=== PATIENT | male | born 1990 | race Caucasian/White ===

== ENCOUNTER 2016-10-06 20:57 | Emergency (ER) | payer MEDICAID ==
[2016-10-06 22:05] LABS: ANION GAP 11 mEq/L (8-16); CALCIUM 9.5 mg/dL (8.5-10.4); CARBON DIOXIDE 23 mEq/l (22-31); CHLORIDE 109 mEq/L (97-110); CREATININE 0.8 mg/dL (0.7-1.3); ETHANOL SERUM < 10 mg/dL (0-10); GLOMERULAR FILTRATION RATE > 60; GLUCOSE 81 mg/dL (70-100); POTASSIUM 4.4 mEq/L (3.5-5.2); SALICYLATE < 1.0 mg/dL (2.0-20.0); SODIUM 143 mEq/L (134-144)
--- NOTE | 2016-10-06 22:21 | EDPHY ---
H & P Smoking Status: Current every day smoker Time Seen by Provider: 10/06/16 22:17 HPI/ROS: HPI: 25-year-old male presents to emergency department with chief concern needing med clearance for placement. Has a past medical history that includes psychosis and anxiety with obsessive thinking, delusional thinking, and paranoia. He is not medicated. Has been staying at his mother's. Was evaluated at [facility] and it was decided he needed a higher level of care. Was sent to emergency department for medical clearance. He psych eval has already been performed. He denies visual or auditory hallucinations. He denies suicidal or homicidal ideation. He denies alcohol or illicit drug use. No fevers, chills, URI symptoms, shortness of breath, chest pain, abdominal pain, nausea, vomiting, diarrhea. ROS:10 point review of systems is negative other than as stated in HPI (Genesis Dumont) Social History: Staying at his mother's (Genesis Dumont) Physical Exam: Vital signs stable, reviewed by me General: Awake, alert, calm, cooperative. No acute distress. Head: Normalocephalic. Atraumatic. EENT: PERRLA. EOMI. No pallor or injection. Anicteric. No nystagmus. No injection. TMs intact bilaterally with normal landmarks. No rhinnorhea, nasal passages clear. Oropharynx without redness, exudates, or lesions. Tonsils 2+ bilaterally, no exudates. Neck: Supple, nontender. No lymphadenopathy. Full range of motion. No meningismus. Respiratory: Breathing unlabored. Breath sounds equal bilaterally and clear to auscultation. No adventitious sounds. CV: Chest nontender, atraumatic. Heart rate regular. No murmur, distal pulses 2+ bilaterally. Brisk cap refill all extremities. GI: Abdomen soft, nontender. Bowel sounds normoactive and positive x4 quadrants. Neuro: Alert. Oriented x 3. Speech clear. Nonfocal cranial nerves throughout. Sensation intact all extremities. Skin: Skin warm, dry, intact. No rashes, abrasions, or lacerations. Skin turgor normal. Extremities: Full range of motion in all 4 extremities. Strength 5+ all extremities. (Genesis Dumont) Constitutional: Initial Vital Signs Temperature (C) 36.6 C 10/06/16 21:03 Heart Rate 90 10/06/16 21:03 Respiratory Rate 16 10/06/16 21:03 Blood Pressure 136/76 H 10/06/16 21:03 O2 Sat (%) 95 10/06/16 21:03 O2 Delivery Mode Room Air Allergies/Adverse Reactions: No Known Allergies Allergy (Unverified 10/06/16 21:02) Home Medications: Medication Instructions Recorded NK [No Known Home Meds] 07/16/16 Medical Decision Making ED Course/Re-evaluation: 25-year-old male who has already been evaluated presents to emergency department as directed by [facility] for med clearance for placement. He is accompanied by his mother who he is staying with. Vitals are stable. He is calm and cooperative. 2317: Medically clear 0105: Care of this patient transferred to my colleague Dr. Tim Meraz (Genesis Dumont) 0100 care assumed by me from KOREY Dumont pending placement. 0440 patient has been accepted at [facility] under Dr. Vázquez. The EMTALA has been completed by me. (Gerardo Meraz) Differential Diagnosis: Differential includes but is not limited to functional and major depression, situational depression, medication side-effect, anxiety, schizophrenia, bipolar , drug or alcohol related, acute psychosis, metabolic derangement, infection ( Genesis Dumont) - Data Points Laboratory Results: Laboratory Results 10/06/16 22:20 10/06/16 21:30 10/06/16 10/06/16 22:20 21:30 WBC 7.78 10^3/uL REJ (3.80-9.50) RBC 5.58 10^6/uL Not Reported (4.40-6.38) Hgb 17.9 H g/dL Not Reported (13.7-17.5) Hct 48.5 % Not Reported (40.0-51.0) MCV 86.9 fL Not Reported (81.5-99.8) MCH 32.1 pg Not Reported (27.9-34.1) MCHC 36.9 H g/dL Not Reported (32.4-36.7) RDW 12.7 % Not Reported (11.5-15.2) Plt Count 239 10^3/uL Not Reported (150-400) MPV 8.9 fL Not Reported (8.7-11.7) Neut % (Auto) 58.7 % Not Reported (39.3-74.2) Lymph % (Auto) 32.3 % Not Reported (15.0-45.0) [place] % (Auto) 6.9 % Not Reported (4.5-13.0) Eos % (Auto) 1.2 % Not Reported (0.6-7.6) Baso % (Auto) 0.6 % Not Reported (0.3-1.7) Nucleat RBC Rel Count 0.0 % Not Reported (0.0-0.2) Absolute Neuts (auto) 4.57 10^3/uL Not Reported (1.70-6.50) Absolute Lymphs (auto) 2.51 10^3/uL Not Reported (1.00-3.00) Absolute Monos (auto) 0.54 10^3/uL Not Reported (0.30-0.80) Absolute Eos (auto) 0.09 10^3/uL Not Reported (0.03-0.40) Absolute Basos (auto) 0.05 10^3/uL Not Reported (0.02-0.10) Absolute Nucleated RBC 0.00 10^3/uL Not Reported (0-0.01) Immature Gran % 0.3 % Not Reported (0.0-1.1) Immature Gran # 0.02 10^3/uL Not Reported (0.00-0.10) Sodium 143 mEq/L (134-144) Potassium 4.4 mEq/L (3.5-5.2) Chloride 109 mEq/L (97-110) Carbon Dioxide 23 mEq/l (22-31) Anion Gap 11 mEq/L (8-16) BUN 16 mg/dL (7-23) Creatinine 0.8 mg/dL (0.7-1.3) Estimated GFR > 60 Glucose 81 mg/dL (70-100) Calcium 9.5 mg/dL (8.5-10.4) Salicylates < 1.0 L mg/dL (2.0-20.0) Urine Opiates Screen NEGATIVE (NEGATIVE) Acetaminophen < 10 L mcg/mL (10.0-30.0) Urine Barbiturates NEGATIVE (NEGATIVE) Ur Phencyclidine Scrn NEGATIVE (NEGATIVE) Ur Amphetamine Screen NEGATIVE (NEGATIVE) U Benzodiazepines Scrn NEGATIVE (NEGATIVE) Urine Cocaine Screen NEGATIVE (NEGATIVE) U Marijuana (THC) Screen NEGATIVE (NEGATIVE) Ethyl Alcohol < 10 mg/dL (0-10) Departure - Departure Disposition: Other Psych, Not [place] Clinical Impression: Medical clearance for psychiatric admission Condition: Good Referrals: NONE *PRIMARY CARE P,. [Primary Care Provider] - As per Instructions
[2016-10-06 22:23] LABS: % IMMATURE GRANULYOCYTES 0.3 % (0.0-1.1); ABSOLUTE IMMATURE GRANULOCYTES 0.02 10^3/uL (0.00-0.10); ADD DIFF? NO; ADD MORPH? NO; ADD SCAN? NO; ATYPICAL LYMPHOCYTE FLAG 0 (0-99); FRAGMENT RBC FLAG 0 (0-99); HEMATOCRIT 48.5 % (40.0-51.0); HEMOGLOBIN 17.9 g/dL (13.7-17.5); LEFT SHIFT FLG 0 (0-99); LIPEMIA HEMOLYSIS FLAG 90 (0-99); MEAN CELL HEMOGLOBIN 32.1 pg (27.9-34.1); MEAN CELL HEMOGLOBIN CONCENTR. 36.9 g/dL (32.4-36.7); MEAN CELL VOLUME 86.9 fL (81.5-99.8); MEAN PLATELET VOLUME 8.9 fL (8.7-11.7); PLATELET CLUMPS FLAG 10 (0-99); PLATELET COUNT 239 10^3/uL (150-400); RED BLOOD CELL COUNT 5.58 10^6/uL (4.40-6.38); RED CELL DISTRIBUTION WIDTH 12.7 % (11.5-15.2)
[2016-10-07 08:30] VITALS: BP 142/74; PULSE 93; RESP 18; TEMP 98.6; O2SAT 95
== END 2016-10-07 08:25 ==
DX: Z04.8 Encounter for examination and observation for other specified reasons (principal); F17.200 Nicotine dependence, unspecified, uncomplicated
CPT/HCPCS: 80305; G0480

== ENCOUNTER 2016-12-10 16:42 | Emergency (ER) | payer MEDICAID ==
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
[2016-12-10 18:28] VITALS: BP 128/82; PULSE 85; RESP 20; TEMP 98.8; O2SAT 93
== END 2016-12-10 18:26 | disposition home or self-care (01) ==
PROC: 0HQ1XZZ Repair Face Skin, External Approach (ICD-10-PCS; principal; 2016-12-10)
DX: S01.112A Laceration without foreign body of left eyelid and periocular area, initial encounter (principal); S09.90XA Unspecified injury of head, initial encounter; F17.200 Nicotine dependence, unspecified, uncomplicated; W22.8XXA Striking against or struck by other objects, initial encounter

== ENCOUNTER 2017-04-09 17:28 | Inpatient (IN) | payer MEDICAID ==
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
[2017-04-09] MEDS ORDERED: LORazepam 2 MG/ML INJ IVP ONE (17:39)
[2017-04-09] MEDS ORDERED: NS 2,000 ML IV ONE (17:40)
[2017-04-09] MEDS ORDERED: ACETAMINOPHEN 650 MG SUPP PR ONE ×2 (17:43→17:44)
[2017-04-09] MEDS ORDERED: LIDOCAINE 2% JELLY 20 ML (UROJECT) ONE (17:49)
[2017-04-09 17:50] LABS: ADD DIFF? YES; ADD MORPH? NO; ADD SCAN? NO; ATYPICAL LYMPHOCYTE FLAG 0 (0-99); FRAGMENT RBC FLAG 0 (0-99); HEMOGLOBIN 19.6 g/dL (13.7-17.5); LEFT SHIFT FLG 10 (0-99); LIPEMIA HEMOLYSIS FLAG 90 (0-99); MEAN CELL HEMOGLOBIN 31.3 pg (27.9-34.1); MEAN CELL HEMOGLOBIN CONCENTR. 33.8 g/dL (32.4-36.7); MEAN CELL VOLUME 92.7 fL (81.5-99.8); MEAN PLATELET VOLUME 9.4 fL (8.7-11.7); PLATELET CLUMPS FLAG 10 (0-99); PLATELET COUNT 368 10^3/uL (150-400); RED BLOOD CELL COUNT 6.26 10^6/uL (4.40-6.38); RED CELL DISTRIBUTION WIDTH 13.2 % (11.5-15.2)
[2017-04-09] MEDS ORDERED: CEFAZOLIN 2 GM/DEXTROSE/100 ML BAG IV ONE (17:50)
--- NOTE | 2017-04-09 17:58 | CPEKG ---
Heart Rate: 155 RR Interval: 387 QRSD Interval: 80 QT Interval: 280 QTC Interval: 450 QRS Emma: 73 T Wave Emma: 38 EKG Severity - ABNORMAL ECG - EKG Impression: JUNCTIONAL TACHYCARDIA Electronically Signed By: Mraiya Nielsen 09-Apr-2017 22:10:28
[2017-04-09 18:14] LABS: ALANINE AMINOTRANSFERASE 26 IU/L (21-72); ALKALINE PHOSPHATASE 128 IU/L (38-126); ASPARTATE AMINOTRANSFERASE 56 IU/L (17-59); BILIRUBIN,TOTAL 0.9 mg/dL (0.1-1.4); BILIRUBIN-CONJUGATED 0.5 mg/dL (0.0-0.5); BILIRUBIN-UNCONJUGATED 0.4 mg/dL (0.0-1.1); CALCIUM 11.3 mg/dL (8.5-10.4); CHLORIDE 109 mEq/L (97-110); GLOMERULAR FILTRATION RATE 25; GLUCOSE 124 mg/dL (70-100); POTASSIUM 4.7 mEq/L (3.5-5.2); SODIUM 155 mEq/L (134-144); TOTAL PROTEIN 9.8 g/dL (6.3-8.2)
[2017-04-09 18:25] LABS: TROPONIN I 0.333 ng/mL (0-0.034)
[2017-04-09 18:28] LABS: CARBON DIOXIDE < 5 mEq/l (22-31)
[2017-04-09 18:43] LABS: BASE EXCESS -9.4 mEq/L (-2.5-2.5); BICARBONATE 15 mEq/L (22-26); MEASURED OXYGEN SATURATION 98 % (92-95); PCO2 29 mmHg (34-38); PO2 129 mmHg (65-75); TCO2 16 mEq/L (23-27)
[2017-04-09 18:46] LABS: CK-MB INTERPRETATION NEGATIVE (NEGATIVE)
[2017-04-09 18:49] LABS: PLATELET ESTIMATE ADEQUATE (ADEQ)
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
[2017-04-09 18:59] LABS: ALBUMIN 6.3 g/dL (3.5-5.0)
[2017-04-09] MEDS ORDERED: ONDANSETRON 4 MG/2 ML VIAL IVP PRN (19:27)
[2017-04-09] MEDS ORDERED: NITROGLYCERIN 0.4 MG BTL SL PRN (19:48)
--- NOTE | 2017-04-09 19:48 | CPEKG ---
Heart Rate: 114 RR Interval: 526 P-R Interval: 128 QRSD Interval: 78 QT Interval: 320 QTC Interval: 441 P Saxe: 72 QRS Saxe: 66 T Wave Saxe: 47 EKG Severity - OTHERWISE NORMAL ECG - EKG Impression: SINUS TACHYCARDIA Electronically Signed By: Mariya Nielsen 09-Apr-2017 22:10:12
[2017-04-09] MEDS ORDERED: ACETAMINOPHEN 650 MG SUPP PR PRN (19:55)
[2017-04-09 20:37] LABS: ALBUMIN 4.1 g/dL (3.5-5.0); ANION GAP 14 mEq/L (8-16); CALCIUM 8.7 mg/dL (8.5-10.4); CARBON DIOXIDE 16 mEq/l (22-31); CHLORIDE 115 mEq/L (97-110); CREATININE 2.1 mg/dL (0.7-1.3); ETHANOL SERUM < 10 mg/dL (0-10); GLOMERULAR FILTRATION RATE 38; GLUCOSE 89 mg/dL (70-100); POTASSIUM 4.4 mEq/L (3.5-5.2); SALICYLATE < 1.0 mg/dL (2.0-20.0); SODIUM 145 mEq/L (134-144)
--- NOTE | 2017-04-09 20:52 | GHP ---
[f rep st] HISTORY AND PHYSICAL DATE OF ADMISSION: 04/09/2017 CHIEF COMPLAINT: Methamphetamine intoxication. HISTORY OF PRESENT ILLNESS: The patient is a 26-year-old male with a history of methamphetamine abuse, who presents to the emergency department as a limited trauma activation after police were called to his apartment where he was reported to be behaving erratically. On arrival, the police apparently had a 5- hour standoff with the patient. During this time, he punched his hand through a window and suffered a laceration on the dorsal aspect of his right hand, severing at least 2 tendons. He was tased by the police and brought to the emergency department where he was found to be tachycardic in the 180s on arrival with a temperature of 40.2, and a respiratory rate in the 40s on 15 L of oxygen. He received Haldol and Versed in the field followed by 2 mg of IV Ativan in the emergency department. At the time of my evaluation, the patient is relatively obtunded and, therefore, history is obtained from the ED staff and police report. Due to his acute methamphetamine intoxication along with multiple electrolyte abnormalities including acute renal failure with associated hyperphosphatemia, hypernatremia, hypercalcemia, and an elevated troponin, he was admitted to the intensive care unit for further management. PAST MEDICAL HISTORY: Unobtainable, but clearly positive for methamphetamine abuse. MEDICATIONS: It is unknown at this time if the patient takes medication though it is possible he takes Zyprexa. ALLERGIES: He has no known drug allergies. FAMILY HISTORY: Unobtainable. SOCIAL HISTORY: Unobtainable. It appears the patient lives alone in his apartment and has a history of drug use. REVIEW OF SYSTEMS: Unobtainable. PHYSICAL EXAMINATION: VITAL SIGNS: Upon arrival, temperature 40.2, blood pressure 109/63, heart rate 167, respiratory rate 43. He was 100% on 15 L of oxygen. CURRENT VITAL SIGNS: Temperature 37.9 blood pressure 134/76, heart rate 120s, respiratory rate 30, he is 98% on 5 L of oxygen. GENERAL: The patient is obtunded. He responds to both verbal and painful stimuli, but has no sensical response. He is diaphoretic. HEENT: Head is atraumatic, normocephalic. Pupils are equal, round, and reactive to light. Extraocular muscles intact. Oropharynx is clear. Mucous members are moist. NECK: Supple. There is no JVD. HEART: Tachycardic without murmur. LUNGS: Clear to auscultation bilaterally. ABDOMEN: Soft, nondistended, nontender with normoactive bowel sounds. EXTREMITIES: Without cyanosis, clubbing, or edema. NEUROLOGIC: The patient is heavily sedated though moves all 4 extremities. There are no focal neuro deficits. LABORATORY DATA: CBC: Reveals a white blood cell count of 21.4, hemoglobin 19.6, hematocrit 58. He has 16.4 segmented neutrophils and 1.28 bands. ABG reveals a pH of 7.33 with a pCO2 of 29, and pO2 of 129, total CO2 of 16. Complete metabolic panel shows a sodium of 155, potassium 4.7, chloride 109, CO2 less than 5, BUN 17, creatinine 3.0, glucose 124, calcium 11.7, phosphorus 9.7. LFTs are normal. CK is 1122. Troponin is 0.333. Protein is elevated at 9.8, albumin 6.3. Urine drug screen is positive for amphetamine and marijuana. Chest x-ray is negative for an acute cardiopulmonary process. Initial EKG shows sinus tachycardia with a rate at 155. There is no acute ST- elevation. Hand x-ray shows no evidence for acute fracture. Wrist x-ray shows no acute abnormality. ASSESSMENT AND PLAN: The patient is a 26-year-old male, who presents to the emergency department with acute methamphetamine intoxication after being tased by police due to erratic and aggressive behavior after a 5-hour standoff with police in his apartment. 1. Acute methamphetamine intoxication. He presents with severe tachycardia which has already improved. His heart rate is currently in the 120s after receiving nearly 3 L of normal saline in the emergency department. He has also received Haldol, Versed, and Ativan, and is currently resting comfortable, though appears diaphoretic. We will continue p.r.n. Ativan for agitation and consider addition of Haldol or Zyprexa if needed. 2. Left hand laceration with open tendon wound. He will receive Ancef at the recommendation of Surgery for his open tendon wound. The patient is n.p.o., will go to surgery tomorrow. 3. Acute kidney injury. I suspect he is prerenal given his presentation on methamphetamine. He has likely had poor oral intake. The rest of his labs appear hemoconcentrated. The patient presents with a creatinine of 3 and electrolyte abnormalities including hypercalcemia and hyperphosphatemia. I am repeating a renal function panel right now as he has received nearly 3 L of fluid to reassess his electrolyte status. We will continue IV hydration and recheck labs again in the morning. 4. Hypernatremia. As above, I am repeating a metabolic panel at this time. I anticipate this will have dropped rather rapidly due to his aggressive IV fluid resuscitation which he clearly needed upon arrival. 5. Hyperphosphatemia in the setting of acute kidney injury. I discussed the case with Renal and they will consult. Likely, he just needs IV fluid resuscitation. Repeat labs are pending. It is unclear what effect a taser has on his cellular function, though this may be partially responsible for his acute electrolyte abnormalities. 6. Elevated troponin. There was no evidence of ST-segment elevation on his EKG. He has not complained of chest pain. I discussed the case with Cardiology and will proceed with a stat echocardiogram to ensure there is no wall motion abnormality. Trend his troponin. He is low risk to have coronary artery disease, but is clearly at risk for coronary artery vasospasm in the setting of acute methamphetamine intoxication. We will provide p.r.n. nitroglycerin should he develop chest pain. Further management pending the trend in his troponin and symptoms. 7. Leukocytosis. This is likely a stress response in the setting of acute meth poisoning. He did present febrile with a temperature of 40.2. Again, I suspect this is all secondary to methamphetamine. A lactate was sent by the ED and is currently pending. This may be elevated due to decreased tissue perfusion in the setting of severe tachycardia and a taser. 8. Metabolic acidosis. His presenting serum CO2 was less than 5, though his pCO2 was low suggesting appropriate respiratory compensation. His pH is 7.33. I will defer a bicarb drip at this time. Again, I am repeating labs right now. We will reassess his serum CO2 as well as his anion gap. 9. DVT prophylaxis. I will defer Lovenox for now as the patient is pending surgery. We will place SCDs. He may warrant Lovenox postoperatively if he has a prolonged hospitalization. 10. Code status. Patient is full code. 11. Disposition. Patient is admitted to inpatient status, will likely require greater than 48 hours hospitalization for ongoing management of his multiple medical problems, associated with this acute methamphetamine intoxication. /[id number]/MODL MTDD
--- NOTE | 2017-04-09 20:52 | GCON ---
[f rep st] CONSULTATION DATE OF CONSULTATION: 04/09/2017 REASON FOR CONSULTATION: 1. Acute renal failure. 2. Hyperphosphatemia. ASSESSMENT: 1. Acute renal failure with a creatinine of 3, prior baseline of 0.8 earlier this year. 2. Hyperthermia, likely related to amphetamine intoxication. 3. Tachycardia and tachypnea. 4. Hypernatremia. 5. Hyperphosphatemia. 6. Hypercalcemia. 7. Elevated albumin level. 8. Erythrocytosis. 9. Rhabdomyolysis. 10. Acidosis with increased anion gap. 11. Lactic acid level pending. RECOMMENDATION: 1. Supportive care. 2. Hydrate. 3. Check followup labs closely. 4. Expect above changes to resolve with IV fluid and resolution of his amphetamine intoxication. HISTORY: The patient is a 26-year-old gentleman who presents to the emergency room under police escort with multiple lacerations of both hands. The patient had been barricaded in his apartment for 5 hours prior to his arrival to the emergency room. He evidently sustained lacerations to both hands while breaking the windows within the residence. SWAT team extricated the patient. He was combative. He reportedly was subjected to Taser shock once by police officers to help subdue him. He is now sedated from the effects of medications given to him by medical personnel. He is not able to provide any history to me at this time. History obtained from chart. Patient had altered mental status on presentation to the emergency room. He evidently has reported some history of kidney problems in the past. In spite of this, he has had a normal creatinine documented as recently as October 06, 2016, when his blood tests showed a creatinine of 0.8. SOCIAL HISTORY: Patient is a smoker. Screening tests for both amphetamine and marijuana are not negative. FAMILY HISTORY: Unobtainable. SOCIAL HISTORY: Unobtainable. REVIEW OF SYSTEMS: Unobtainable. PHYSICAL EXAMINATION: VITAL SIGNS: Temp as high as 40.2 (now down to 37.9), pulse 167 (down to 128), respirations 43 (now down to 30), blood pressure 134/ 76. APPEARANCE: Young white male, sedated, lying on side in [facility] with both hands wrapped. He responds to voice but otherwise is restive. HEENT : Atraumatic, normocephalic. NECK: Unremarkable. HEART: Regular with no extra heart sounds. LUNGS: Grossly clear to auscultation. ABDOMEN: Grossly benign. EXTREMITIES: Free of edema. SKIN: free of rashes. Hands wrapped, with some visible lacerations noted on the right hand. LABORATORY DATA: Sodium 155, chloride 109, bicarb less than 5, lactic acid level currently pending, BUN 17, creatinine 3. White count 21,000, hematocrit 58,000. Calcium 11.3, phosphorus 9.7, albumin elevated at 6.3. Blood gas shows a pH of 7.33 with a pCO2 of 16. CPK mildly elevated at 1122. ASSESSMENT: Acute renal failure. He has evidence of acute muscle injury which I suspect is related to either his amphetamine use and/or the use of the Taser. On review of Up-to-Date, there appears to be very little in the way of metabolic abnormalities that occur with electrical weapons other than rhabdomyolysis and fluid shifts. This may explain his increased sodium, albumin and hematocrit.. I do not think his other electrolyte disorders can be explained by that and are probably more likely related to his methamphetamine use. He is hyperthermic as well, which again is associated with methamphetamine intoxication. At the present time, I would simply provide supportive care and hydrate this patient. I suspect his electrolyte disorders will resolve spontaneously as he gets hydrated, and the effects of the methamphetamine leave his system. He is already making copious amounts of urine. Currently, there are no acute indications for dialysis. I would expect as his acute renal injury resolves, his phosphorus and calcium will quickly go back to normal levels. He does not have a prior history of electrolyte disorders based on the labs I reviewed from September. I certainly would avoid nonsteroidal agents, IV contrast, and other medications that could affect kidney function and/or renal blood flow. We will follow along with you. Copy requested to: Primary Care Physician /[id number]/MODL MTDD
[2017-04-09] MEDS: NS 1,000 ML IV SCH (21:10)
[2017-04-09] MEDS: LORazepam 2 MG/ML INJ IVP PRN (22:10)
[2017-04-10] MEDS ORDERED: ceFAZolin 1 GM in D5W 50 ML IV SCH (01:00)
[2017-04-10 03:26] LABS: % IMMATURE GRANULYOCYTES 0.6 % (0.0-1.1); ABSOLUTE IMMATURE GRANULOCYTES 0.07 10^3/uL (0.00-0.10); ADD DIFF? NO; ADD MORPH? NO; ADD SCAN? NO; ATYPICAL LYMPHOCYTE FLAG 0 (0-99); FRAGMENT RBC FLAG 0 (0-99); HEMATOCRIT 43.3 % (40.0-51.0); HEMOGLOBIN 15.2 g/dL (13.7-17.5); LEFT SHIFT FLG 0 (0-99); LIPEMIA HEMOLYSIS FLAG 90 (0-99); MEAN CELL HEMOGLOBIN 31.5 pg (27.9-34.1); MEAN CELL HEMOGLOBIN CONCENTR. 35.1 g/dL (32.4-36.7); MEAN CELL VOLUME 89.8 fL (81.5-99.8); MEAN PLATELET VOLUME 9.4 fL (8.7-11.7); PLATELET CLUMPS FLAG 0 (0-99); PLATELET COUNT 164 10^3/uL (150-400); RED BLOOD CELL COUNT 4.82 10^6/uL (4.40-6.38); RED CELL DISTRIBUTION WIDTH 13.1 % (11.5-15.2)
[2017-04-10 03:42] LABS: ALBUMIN 3.8 g/dL (3.5-5.0); ANION GAP 12 mEq/L (8-16); CALCIUM 8.4 mg/dL (8.5-10.4); CARBON DIOXIDE 16 mEq/l (22-31); CHLORIDE 114 mEq/L (97-110); CREATININE 1.3 mg/dL (0.7-1.3); GLOMERULAR FILTRATION RATE > 60; GLUCOSE 76 mg/dL (70-100); POTASSIUM 4.6 mEq/L (3.5-5.2); SODIUM 142 mEq/L (134-144)
[2017-04-10] MEDS: LORazepam 2 MG/ML INJ IVP PRN ×2 (04:59→22:20)
[2017-04-10] MEDS: NS 1,000 ML IV SCH ×2 (05:00→12:10)
--- NOTE | 2017-04-10 08:36 | SOAPPROG ---
SOAP Progress Note Assessment/Plan: Assessment/Plan: L hand dorsal laceration involving extensor tendons -Consult note dictated -Pt to remain NPO -Likely surgical intervention this afternoon/evening pending medicine approval 04/10/17 08:33 Subjective: Consult note dictated. Objective: Vital Signs Temp Pulse Resp BP Pulse Ox 36.7 C 100 14 109/65 98 04/10/17 06:00 04/10/17 07:00 04/10/17 07:00 04/10/17 07:00 04/10/17 07:00 Laboratory Results 04/10/17 03:15 04/10/17 03:15 04/09/17 04/10/17 04/11/17 05:59 05:59 05:59 Intake Total 32306 Output Total 1450 Balance 8850 ICD10 Worksheet Patient Problems: Problems Problem Status Onset Extensor tendon laceration of left hand with open wound Acute - ICD10 Problem Qualifiers (1) Extensor tendon laceration of left hand with open wound Qualifiers: Encounter type: initial encounter Qualified Code(s): S66.822A - Laceration of other specified muscles, fascia and tendons at wrist and hand level, left hand, initial encounter; S61.402A - Unspecified open wound of left hand, initial encounter
--- NOTE | 2017-04-10 09:36 | ECHO ---
[id number] + + [id number] : : [place] [id number] : : [phone] + + Adult Echocardiographic Report + -+ :Name: DALLAS DESAI MStudy Date: 04/10/2017 07:54 AM : : Hospital Admission Number: [id number] : :: 1990 Gender: Male Height: 74 in : :Age: 26 yrs Race: WH Weight: 200 lb : : : : BSA: 2.2 meters 2: + -+ MMode/2D Measurements \T\ Calculations IVSd: 0.76 cm LVIDd: 5.1 cm FS: 38.0 % Ao root diam: 2.5 cm LVPWd: 0.86 cm LVIDs: 3.2 cm EDV(Teich): 124.6 ml ACS: 1.8 cm ESV(Teich): 40.0 ml EF(Teich): 67.9 % Normal Measurement Values: + + :LVIDd (3.5-5.7cm) IVSd (0.6-1.1cm) LVPWd (0.6-1.1cm) Aortic Root (2.0-3.7cm)Left Atrium (1.5-4.0cm): :LV Vol(d) (76-115ml) LV Vol(s) (29-48ml) Ejec Fraction (50-65%)PV Jag (0.6- 1.2m/s) TV Jag (0.4-1.0m/s) : :MV E Jag (0.8-1.0m/s)MV A Jag (0.3-1.0m/s)LVOT Jag (0.7-1.2m/s) Asc Ao Jag ( 0.9-1.8m/s) : + + Doppler Measurements \T\ Calculations MV E max jag: Ao V2 max: LV V1 max: PA V2 max: 87.4 cm/sec 126.2 cm/sec 82.9 cm/sec 109.9 cm/sec MV A max ajg: Ao max P.4 mmHgLV V1 max PG: PA max P.8 mmHg 75.5 cm/sec 2.8 mmHg MV E/A: 1.2 Left Ventricle The left ventricle is normal in size. There is normal left ventricular wall thickness. Ejection Fraction = 55-60%. mild posterior wall hypokinesis with preserved lVEF. + ---------+ : : :I WMSI = 1.13 % Normal = 88 : + + + ---------+ :+ +:+ ++ +: : :: ::: :: :: : :: ::: :: :: : :: ::: :: :: : :: ::: :: :: : :: ::: :: :: : :: ::: :: :: : :: ::+ ++ +: : :: ::+ ++ +: : :: ::: :: :: : :: ::: :: :: : :: ::: :: :: : :: ::: :: :: : :: ::: :: :: : :: ::: :: :: : :+ +:+ ++ +: : + + ---------+ : : : : : Segments Size : : :+--------+ --------+: :X - Cannot 0 - (2) - Mildly 2 - ::1-2 : small :: :Interpret Hyperkinetic 1 - Normal Hypokinetic Hypokinetic :+--------+ --------+: : 7 - ::3-5 : moderate:: :3 - Akinetic 4 - 5 - 6 - Akinetic Dyskinetic :+--------+ --------+: : Dyskinetic Aneurysmal w/scar w/scar ::6-14 : large :: : :+--------+ --------+: : ::15-16 : diffuse :: : :+--------+ --------+: + + ---------+ Right Ventricle The right ventricular systolic function is normal. Atria The left atrial size is normal. Right atrial size is normal. Mitral Valve The mitral valve is normal in structure and function. There is no evidence of mitral valve prolapse. There is no mitral valve stenosis. There is no mitral regurgitation noted. Tricuspid Valve The tricuspid valve is normal in structure and function. Aortic Valve The aortic valve is normal in structure and function. There is no aortic stenosis. There is no aortic insufficiency. Pulmonic Valve The pulmonic valve is not well visualized. Great Vessels The aortic root is normal size. Pericardium/Pleural There is no pericardial effusion. Conclusion The aortic valve is normal in structure and function. Ejection Fraction = 55-60%. Final Reading Physician: Solomon Franks electronically signed on 04/10/2017 09:34 AM Ordering Physician: Maya Mustafa
--- NOTE | 2017-04-10 10:00 | SOAPPROG ---
SOAP Progress Note Assessment/Plan: Assessment/Plan: TYLER: Cr up to 3 from baseline of 0.8, now down to 1.3 with abundant IVFs given. Likely secondary to rhabdo vs prerenal. - No need for HD. - Continue IVFs. - Will continue to monitor. - Avoid hypotension and nephrotoxins. Hypernatremia: improved, sodium down to 142, will continue to monitor. Hypercalcemia: Ca improved to 8.4 with IVFs, will continue to monitor. Metabolic acidosis: improving, CO2 up to 16 with IVFs and improvement in TYLER, will continue to monitor. Subjective: No acute events overnight. Pt having some back pain but no other complaint other than feeling tired. Objective: Vital Signs Temp Pulse Resp BP Pulse Ox 36.6 C 92 20 119/73 95 04/10/17 09:00 04/10/17 09:00 04/10/17 09:00 04/10/17 09:00 04/10/17 09:00 Laboratory Results 04/10/17 03:15 04/10/17 03:15 04/09/17 04/10/17 04/11/17 05:59 05:59 05:59 Intake Total 22942 Output Total 1450 Balance 8850 General: alert and oriented, no acute distress Eyes; EOMI, PERRL OP: Clear CV: RRR Resp: CTAB, nonlabored respirations on RA Abd: Soft, NT Ext: no edema BLE Neuro: CN II-XII grossly intact, no asterixis ICD10 Worksheet Patient Problems: Problems Problem Status Onset Extensor tendon laceration of left hand with open wound Acute
--- NOTE | 2017-04-10 11:35 | HOSPPROG ---
Hospitalist Progress Note Assessment/Plan: 26 yo M w meth use admitted w intoxication, svt, hypernatremia SVT: resolved 2/2 meth use + trop: likely from SVT + meth echo w posterior WMA but intact LVEF discussed w dr velarde hypernatremia: resolved 2/2 free h20 depletion meth use: rec cessation preop: medically OK for extensor tendon repair schizophrenia: restart zyprexa proph: lmwh remove merrill after surgery Subjective: case d/w dr black. tele: no svt Objective: Vital Signs Temp Pulse Resp BP Pulse Ox 36.6 C 107 H 20 126/69 H 96 04/10/17 09:00 04/10/17 10:00 04/10/17 10:00 04/10/17 10:00 04/10/17 10:00 Laboratory Results 04/10/17 03:15 04/10/17 03:15 04/09/17 04/10/17 04/11/17 05:59 05:59 05:59 Intake Total 64870 Output Total 1450 Balance 8850 - Physical Exam Constitutional: no apparent distress, appears nourished Eyes: PERRL, anicteric sclera Ears, Nose, Mouth, Throat: moist mucous membranes, hearing normal Cardiovascular: regular rate and rhythym, no murmur, rub, or gallop Respiratory: no respiratory distress, no rales or rhonchi Gastrointestinal: normoactive bowel sounds, soft, non-tender abdomen Genitourinary: no bladder fullness, merrill in urethra Skin: warm, normal color Musculoskeletal: full muscle strength, no muscle tenderness Neurologic: AAOx3 Psychiatric: interacting appropriately, not anxious Lymph, Heme, Immunologic: no cervical LAD ICD10 Worksheet Patient Problems: Problems Problem Status Onset Extensor tendon laceration of left hand with open wound Acute
[2017-04-10] MEDS ORDERED: ceFAZolin 2 GM/DEXTROSE 100 ML IV ONE (13:39)
--- NOTE | 2017-04-10 14:49 | GCON ---
[f rep st] CONSULTATION CAD APPLICATION SUPPORT SPECIALIST CONSULTATION REASON FOR ADMISSION: Limited trauma, altered mental status. HISTORY OF PRESENTING ILLNESS: The patient is a 26-year-old white male with unknown past medical hi story, with the exception of methamphetamine abuse. He arrived in the emergency room under limited trauma. Apparently, he had altered mental status in his apartment, the police were notified, this l ed to a 5-hour stand-off. He punched his hand through a window and suffered lacerations to his righ t hand, severing tendons. He eventually was tasered by police [facility] He was sedated at that time, and subsequently admitted to the intensive care unit. Here in the intensive care unit, he is much calmer and somewhat somnolent. PAST MEDICAL HISTORY: None known. ALLERGIES: No known allergies to medication. SOCIAL HISTORY: Unknown. PHYSICAL EXAM: VITAL SIGNS: Blood pressure 121/83, pulse 94, respirations 20, temperature 36.7, ox ygen saturation 99% on room air. GENERAL: He is a well-developed, well-nourished, 26-year-old male , who is somnolent but arousable. HEENT: Eyes are PERRL, EOMI. Throat shows no erythema or tonsil lar hypertrophy. NECK: Supple. There is no cervical adenopathy. HEART: Regular rate and rhythm without murmurs, rubs, gallops. LUNGS: Clear to auscultation. No wheeze or rhonchi. ABDOMEN: So ft, nontender. Bowel sounds present in all 4 quadrants. EXTREMITIES: No clubbing, cyanosis, or ed zoey. Right hand is bandaged. LABORATORIES: White count 12.5, hemoglobin 15, hematocrit 43, platelet count is 164. Sodium 142, p otassium 4.6, chloride 114, CO2 16, BUN 17, creatinine 1.3, glucose is 76. Urine tox screen is non- negative for amphetamines and marijuana. IMPRESSION: 1. Acute renal failure, resolved. 2. Methamphetamine intoxication. This appears to have resolved. 3. Left dorsal laceration involving the extensor tendons. RECOMMENDATIONS: 1. Adequate pain control. 2. DVT and PE prophylaxis. 3. Stress ulcer prophylaxis. 4. Close cardiovascular monitoring. 5. Patient to the operating room today for repair of tendons. /[id number]/MODL
[2017-04-10] MEDS ORDERED: BUPIVACAINE 0.25% 30 ML SDV ONE ×2 (15:25→19:01)
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
[2017-04-10 18:49] LABS: CK-MB INTERPRETATION NEGATIVE (NEGATIVE)
--- NOTE | 2017-04-10 19:00 | PDANEPAE ---
ANE Past Medical History - Cardiovascular History Hx Hypertension: No Hx Arrhythmias: Yes Hx Chest Pain: No Hx Coronary Artery / Peripheral Vascular Disease: No Hx CHF / Valvular Disease: No Hx Palpitations: No - Pulmonary History Hx COPD: No Hx Asthma/Reactive Airway Disease: No Hx Recent Upper Respiratory Infection: No Hx Oxygen in Use at Home: No Hx Sleep Apnea: No Sleep Apnea Screening Result - Last Documented: Negative - Endocrine History Hx Diabetes: No Hypothyroid: No Hyperthyroid: No Obesity: no - Renal History Hx Renal Disorders: Yes Renal History Comment: recently elevated Cr, now down to 1.3 - Neurological & Psychiatric Hx Hx Neurological and Psychiatric Disorders: Yes Neurological / Psychiatric History Comment: illicit substance abuse - Chronic Pain History Chronic Pain: No ANE Patient History - Allergies Allergies/Adverse Reactions: No Known Allergies Allergy (Verified 12/10/16 16:47) - Home Medications Home Medications: OLANZapine [Zyprexa] 10 mg PO HS 04/10/17 [Last Taken 04/08/17] - NPO status NPO Since - Liquids (Date): 04/10/17 NPO Since - Liquids (Time): 12:00 NPO Since - Solids (Date): 04/09/17 - Smoking Hx Smoking Status: Current every day smoker ANE Labs/Vital Signs - Labs Result Diagrams: 04/10/17 03:15 04/10/17 03:15 - Vital Signs Blood Pressure: 99/73 Heart Rate: 100 Respiratory Rate: 16 O2 Sat (%): 96 Height: 187.96 cm Weight: 80 kg ANE Physical Exam - Airway Neck exam: FROM Mallampati Score: Class 2 Mouth exam: normal dental/mouth exam - Pulmonary Pulmonary: no respiratory distress - Cardiovascular Cardiovascular: regular rate and rhythym ANE Anesthesia Plan Anesthesia Plan: GA w LMA
[2017-04-10] MEDS ORDERED: PROPOFOL/EMULSION 500 MG/50 ML BOTTLE IV ONE (19:07)
[2017-04-10] MEDS ORDERED: fentaNYL 100 MCG/2 ML INJ ONE ×3 (19:08→20:44)
[2017-04-10] MEDS ORDERED: MIDAZOLAM 2 MG/2 ML VIAL ONE (19:24)
--- NOTE | 2017-04-10 20:23 | SOAPPROG ---
SOAP Progress Note Assessment/Plan: Assessment: SEEN EARLIER TODAY/ AFEBRILE/ WOUNDS CLEAN Plan:TENDON REPAIR TODAY 04/10/17 20:23 Objective: Vital Signs Temp Pulse Resp BP Pulse Ox 37.1 C 100 16 99/73 L 96 04/10/17 14:00 04/10/17 19:00 04/10/17 19:00 04/10/17 19:00 04/10/17 19:00 Laboratory Results 04/10/17 03:15 04/10/17 03:15 04/09/17 04/10/17 04/11/17 05:59 05:59 05:59 Intake Total 74595 1750 Output Total 1450 900 Balance 8850 850 ICD10 Worksheet Patient Problems: Problems Problem Status Onset Extensor tendon laceration of left hand with open wound Acute
[2017-04-10] MEDS ORDERED: NALOXONE HCL 0.4 MG/ML INJ IVP PRN (20:45)
[2017-04-10] MEDS ORDERED: PROMETHAZINE HCL 25 MG/ML INJ IVP PRN (20:45)
[2017-04-10] MEDS ORDERED: fentaNYL 100 MCG/2 ML INJ IVP PRN (20:45)
[2017-04-10] MEDS ORDERED: HYDROmorphONE/DILAUDID 1 MG/ML SYR IVP PRN (20:45)
[2017-04-10] MEDS ORDERED: LR 500 ML IV PRN (20:45)
[2017-04-10] MEDS ORDERED: OXYCODONE/APAP 5/325 TAB PO PRN (20:45)
[2017-04-10] MEDS ORDERED: PROPOFOL 200 MG/20 ML VIAL ONE (20:59)
--- NOTE | 2017-04-10 21:12 | POSTANESTH ---
Post Anesthetic Evaluation Cardiovascular Status: Normal, Stable Respiratory Status: Normal, Stable Level of Consciousness/Mental Status: Can Participate in Eval Pain Control: Adequate, Prn Tx Ordered Nausea/Vomiting Control: Adequate, Prn Tx Ordered Complications Possibly Related to Anesthesia: None Noted
[2017-04-10] MEDS: OLANZapine 10 MG TAB PO SCH (22:06)
--- NOTE | 2017-04-10 22:46 | GOP ---
[f rep st] OPERATIVE REPORT DATE OF OPERATION: 04/10/2017 SURGEON: Con Garsia MD ANESTHESIA: General. PREOPERATIVE DIAGNOSIS: Left extensor last tendon lacerations to 2nd, 3rd and 4th fingers. POSTOPERATIVE DIAGNOSIS: Left extensor last tendon lacerations to 2nd, 3rd and 4th fingers. PROCEDURE PERFORMED: Repair of extensor tendon lacerations to 2nd, 3rd and 4th fingers. FINDINGS: DESCRIPTION OF PROCEDURE: The patient was taken the operating room, administered general anesthesia , placed in a supine position. The left upper extremity was prepped and draped in normal sterile fa shion. The sutures were removed that were previously placed in the emergency room. A thorough lava ge was performed with copious amounts of saline solution. The tendon ends were then retrieved proxi jeronimo. There were 2 partial tendon lacerations greater than 50% to the 2nd and 4th fingers. There was a complete laceration to the 3rd. The complete lacerated had tendon retracted proximally. We d issected proximally and were able to retrieve it. This was temporarily secured with a Zack needle. The tendon ends were then reapproximated with a 4-0 FiberWire suture in a Garvey type stitch teressa kyle. The ends were then reinforced with a running 6-0 Prolene suture. The partial tears were repai red with a series of 6-0 Prolene sutures. A thorough lavage was performed with normal saline. Clos ure was performed with a series of interrupted 5-0 nylon sutures. A sterile compression dressing wa s applied. The patient was placed into a splint holding the fingers in extension. He tolerated the procedure well, was transferred back to the recovery room in stable condition. No operative compli cations. COMPLICATIONS: None. /[id number]/MODL
--- NOTE | 2017-04-11 09:15 | TRAUMAPN ---
Assessment/Plan: PAD#2 POD#1 04/11/2017 Assessment: C/o of back ache and tiredness. CK dramatically up concern for rhabdomyolysis continues. Still on M1 Hold Plan: Continue hydration, Check UA, repeat labs in AM Safe place for discharge in the works! Subjective: C/o Back pain and spasm Objective: Vital Signs Temp Pulse Resp BP Pulse Ox 36.9 C 78 14 125/61 H 94 04/11/17 08:00 04/11/17 08:00 04/11/17 04:00 04/11/17 08:00 04/11/17 08:00 Laboratory Results 04/10/17 03:15 04/10/17 03:15 04/10/17 04/11/17 04/12/17 05:59 05:59 05:59 Intake Total 59588 2750 Output Total 1450 1950 Balance 8850 800 Physical Exam - Physical Exam General Appearance: WD/WN, alert, mild distress Neck: non-tender, full range of motion, supple Respiratory: chest non-tender, lungs clear, normal breath sounds Cardiac/Chest: regular rate, rhythm Abdomen: normal bowel sounds, non-tender, soft Male Genitalia: deferred Rectal: deferred Back: Normal inspection Skin: normal color, warm/dry Extremities: other (Left hand still in post op dressing, Right hand wounds are superficial and clean) Neuro/Psych: no motor/sensory deficits, alert, normal mood/affect, oriented x 3 Time Spent w/Patient (minutes): 30
--- NOTE | 2017-04-11 09:55 | PDINTPN ---
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 Resolved * Hand laceration with laceration of the extensor tendons -repaired * Disposition-patient is cleared from medical standpoint. * M1 hold Subjective: Resting comfortably. No current complaints. Objective: Vital Signs Temp Pulse Resp BP Pulse Ox 36.9 C 78 14 125/61 H 94 04/11/17 08:00 04/11/17 08:00 04/11/17 04:00 04/11/17 08:00 04/11/17 08:00 Laboratory Results 04/10/17 03:15 04/10/17 03:15 04/10/17 04/11/17 04/12/17 05:59 05:59 05:59 Intake Total 33593 2750 Output Total 1450 1950 Balance 8850 800 Physical Exam - Physical Exam General Appearance: alert, no apparent distress EENT: PERRL/EOMI, normal ENT inspection, pharynx normal, TMs normal Neck: non-tender, full range of motion, supple, normal inspection Respiratory: chest non-tender, lungs clear, normal breath sounds Cardiac/Chest: normal peripheral pulses, regular rate, rhythm Peripheral Pulses: 2+: carotid (R), carotid (L), femoral (R), femoral (L), dorsalis-pedis (R), dorsalis-pedis (L) Abdomen: normal bowel sounds, non-tender, soft Male Genitalia: deferred Rectal: deferred Skin: normal color, warm/dry Extremities: other (Lev bandaged) Neuro/Psych: no motor/sensory deficits, alert, normal mood/affect, oriented x 3 ICD10 Worksheet Patient Problems: Problems Problem Status Onset Extensor tendon laceration of left hand with open wound Acute
--- NOTE | 2017-04-11 10:12 | SOAPPROG ---
SOAP Progress Note Assessment/Plan: Assessment: Passive extension exercises were shown to patient but cognitive ability questionable Plan: Ortho to follow up in 10 days OT to see Can DC Ancef after 3 doses 04/11/17 10:09 Subjective: Groggy but responsive to instruction Objective: Vital Signs Temp Pulse Resp BP Pulse Ox 36.9 C 78 14 125/61 H 94 04/11/17 08:00 04/11/17 08:00 04/11/17 04:00 04/11/17 08:00 04/11/17 08:00 Laboratory Results 04/10/17 03:15 04/10/17 03:15 04/10/17 04/11/17 04/12/17 05:59 05:59 05:59 Intake Total 19044 2750 Output Total 1450 1950 Balance 8850 800 CSMT ok Moves fingers ok ICD10 Worksheet Patient Problems: Problems Problem Status Onset Extensor tendon laceration of left hand with open wound Acute
[2017-04-11 10:49] LABS: COLOR PALE YELLOW; LEUKOCYTE ESTERASE,URINE NEGATIVE (NEGATIVE); NITRITE,URINE NEGATIVE (NEGATIVE)
[2017-04-11 10:49] LABS: % IMMATURE GRANULYOCYTES 0.4 % (0.0-1.1); ABSOLUTE IMMATURE GRANULOCYTES 0.04 10^3/uL (0.00-0.10); ADD DIFF? NO; ADD MORPH? NO; ADD SCAN? NO; ATYPICAL LYMPHOCYTE FLAG 0 (0-99); FRAGMENT RBC FLAG 0 (0-99); HEMATOCRIT 39.8 % (40.0-51.0); HEMOGLOBIN 13.9 g/dL (13.7-17.5); LEFT SHIFT FLG 0 (0-99); LIPEMIA HEMOLYSIS FLAG 90 (0-99); MEAN CELL HEMOGLOBIN 31.1 pg (27.9-34.1); MEAN CELL HEMOGLOBIN CONCENTR. 34.9 g/dL (32.4-36.7); MEAN PLATELET VOLUME 9.2 fL (8.7-11.7); PLATELET CLUMPS FLAG 0 (0-99); PLATELET COUNT 167 10^3/uL (150-400); RED BLOOD CELL COUNT 4.47 10^6/uL (4.40-6.38); RED CELL DISTRIBUTION WIDTH 12.7 % (11.5-15.2)
[2017-04-11 10:56] LABS: MUCUS TRACE /lpf (NONE-1+); RBC,URINE 25-50 /hpf (0-3)
[2017-04-11 11:03] LABS: ALANINE AMINOTRANSFERASE 98 IU/L (21-72); ALBUMIN 3.8 g/dL (3.5-5.0); ALKALINE PHOSPHATASE 86 IU/L (38-126); ANION GAP 10 mEq/L (8-16); ASPARTATE AMINOTRANSFERASE 306 IU/L (17-59); BILIRUBIN,TOTAL 0.6 mg/dL (0.1-1.4); CALCIUM 8.8 mg/dL (8.5-10.4); CARBON DIOXIDE 22 mEq/l (22-31); CHLORIDE 108 mEq/L (97-110); CREATININE 0.8 mg/dL (0.7-1.3); GLOMERULAR FILTRATION RATE > 60; GLUCOSE 93 mg/dL (70-100); POTASSIUM 4.5 mEq/L (3.5-5.2); SODIUM 140 mEq/L (134-144)
--- NOTE | 2017-04-11 11:49 | SOAPPROG ---
SOAP Progress Note Assessment/Plan: Assessment: 1. TYLER: Cr up to 3, now back to baseline of 0.8. Likely secondary to rhabdo vs prerenal. -CK elevated but Cr down and good UOP, agree with increasing IVF to 250cc/hr and can taper off as CK decreases - Continue IVFs. - Will continue to monitor. - Avoid hypotension and nephrotoxins. 2. Hypernatremia: improved. 3. Hypercalcemia: Ca improved. 4. Metabolic acidosis: improving, CO2 up to 16 with IVFs and improvement in TYLER , will continue to monitor. We will SIGN OFF, please call with questions. Plan: 04/11/17 11:27 04/11/17 11:56 Subjective: Feels ok. No c/o. Objective: Vital Signs Temp Pulse Resp BP Pulse Ox 36.9 C 79 18 108/58 L 94 04/11/17 08:00 04/11/17 10:00 04/11/17 10:00 04/11/17 10:00 04/11/17 08:00 Laboratory Results 04/11/17 10:35 04/11/17 10:35 04/10/17 04/11/17 04/12/17 05:59 05:59 05:59 Intake Total 26846 2750 Output Total 1450 1950 Balance 8850 800 Physical Exam - Physical Exam General Appearance: WD/WN Respiratory: normal breath sounds Cardiac/Chest: regular rate, rhythm Abdomen: normal bowel sounds, non-tender Extremities: No swelling ICD10 Worksheet Patient Problems: Problems Problem Status Onset Extensor tendon laceration of left hand with open wound Acute
[2017-04-11] MEDS: ENOXAPARIN 30 MG/0.3 ML SYR SC SCH ×2 (11:50→21:33)
[2017-04-11 12:39] LABS: CK-MB INTERPRETATION NEGATIVE (NEGATIVE)
[2017-04-11] MEDS: NS 1,000 ML IV SCH ×2 (13:11→18:09)
--- NOTE | 2017-04-11 15:31 | HOSPPROG ---
Hospitalist Progress Note Assessment/Plan: 26 yo M w meth use admitted w intoxication, svt, hypernatremia rhabdomyolysis -increase ivf to 250ml/hr -repeat cpk in am SVT: resolved 2/2 meth use + trop: likely from SVT + meth echo w posterior WMA but intact LVEF discussed w dr velarde hypernatremia: resolved 2/2 free h20 depletion meth use: rec cessation preop: medically OK for extensor tendon repair schizophrenia: restart zyprexa proph: lmwh remove merrill after surgery pt is high risk Subjective: no new complaints Objective: Vital Signs Temp Pulse Resp BP Pulse Ox 36.9 C 84 21 H 128/63 H 92 04/11/17 08:00 04/11/17 12:00 04/11/17 12:00 04/11/17 12:00 04/11/17 12:00 Laboratory Results 04/11/17 10:35 04/11/17 10:35 04/10/17 04/11/17 04/12/17 05:59 05:59 05:59 Intake Total 80041 2750 Output Total 1450 1950 Balance 8850 800 - Physical Exam Constitutional: no apparent distress, appears nourished, not in pain Cardiovascular: regular rate and rhythym, no murmur, rub, or gallop Respiratory: no respiratory distress, no rales or rhonchi, clear to auscultation Gastrointestinal: normoactive bowel sounds, soft, non-tender abdomen, no palpable masses Skin: no rashes or abrasions, no fluctuance, no induration ICD10 Worksheet Patient Problems: Problems Problem Status Onset Extensor tendon laceration of left hand with open wound Acute
[2017-04-11] MEDS: OLANZapine 10 MG TAB PO SCH (21:33)
[2017-04-12 06:19] LABS: % IMMATURE GRANULYOCYTES 0.3 % (0.0-1.1); ABSOLUTE IMMATURE GRANULOCYTES 0.02 10^3/uL (0.00-0.10); ADD DIFF? NO; ADD MORPH? NO; ADD SCAN? NO; ATYPICAL LYMPHOCYTE FLAG 0 (0-99); FRAGMENT RBC FLAG 0 (0-99); HEMATOCRIT 36.9 % (40.0-51.0); HEMOGLOBIN 12.8 g/dL (13.7-17.5); LEFT SHIFT FLG 0 (0-99); LIPEMIA HEMOLYSIS FLAG 90 (0-99); MEAN CELL HEMOGLOBIN 31.4 pg (27.9-34.1); MEAN CELL HEMOGLOBIN CONCENTR. 34.7 g/dL (32.4-36.7); MEAN CELL VOLUME 90.4 fL (81.5-99.8); MEAN PLATELET VOLUME 9.9 fL (8.7-11.7); PLATELET CLUMPS FLAG 0 (0-99); PLATELET COUNT 134 10^3/uL (150-400); RED BLOOD CELL COUNT 4.08 10^6/uL (4.40-6.38); RED CELL DISTRIBUTION WIDTH 12.9 % (11.5-15.2)
[2017-04-12 06:45] LABS: ALANINE AMINOTRANSFERASE 74 IU/L (21-72); ALBUMIN 3.1 g/dL (3.5-5.0); ALKALINE PHOSPHATASE 64 IU/L (38-126); ANION GAP 9 mEq/L (8-16); ASPARTATE AMINOTRANSFERASE 156 IU/L (17-59); BILIRUBIN,TOTAL 0.5 mg/dL (0.1-1.4); CALCIUM 8.7 mg/dL (8.5-10.4); CARBON DIOXIDE 22 mEq/l (22-31); CHLORIDE 112 mEq/L (97-110); CREATININE 0.8 mg/dL (0.7-1.3); GLOMERULAR FILTRATION RATE > 60; GLUCOSE 80 mg/dL (70-100); POTASSIUM 4.2 mEq/L (3.5-5.2); SODIUM 143 mEq/L (134-144); TOTAL PROTEIN 5.2 g/dL (6.3-8.2)
[2017-04-12 07:38] LABS: CK-MB INTERPRETATION NEGATIVE (NEGATIVE); CREATINE KINASE-MB FRACTION 9.26 ng/mL (0-3.19)
[2017-04-12] MEDS: ENOXAPARIN 30 MG/0.3 ML SYR SC SCH ×2 (09:04→20:22)
--- NOTE | 2017-04-12 09:06 | PDINTPN ---
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 Resolved * Hand laceration with laceration of the extensor tendons -repaired * Rhabdomyolysis-markedly improved * Disposition-patient is cleared from medical standpoint. * M1 hold-will discontinue today * Medically clear Subjective: Resting comfortably. Pain is tolerable. Awake and alert and oriented. Objective: Vital Signs Temp Pulse Resp BP Pulse Ox 36.8 C 60 18 118/100 H 97 04/12/17 07:38 04/12/17 07:38 04/12/17 07:38 04/12/17 07:38 04/12/17 07:38 Laboratory Results 04/12/17 06:10 04/12/17 06:10 04/11/17 04/12/17 04/13/17 05:59 05:59 05:59 Intake Total 2750 3073 Output Total 1950 5 Balance 800 3068 Physical Exam - Physical Exam General Appearance: WD/WN, alert, no apparent distress EENT: PERRL/EOMI, normal ENT inspection, pharynx normal, TMs normal Neck: non-tender, full range of motion, supple, normal inspection Respiratory: chest non-tender, lungs clear, normal breath sounds Cardiac/Chest: normal peripheral pulses, regular rate, rhythm Abdomen: normal bowel sounds, non-tender, soft Male Genitalia: deferred Rectal: deferred Skin: normal color, warm/dry Extremities: other (Hands bandaged) ICD10 Worksheet Patient Problems: Problems Problem Status Onset Acute renal failure (ARF) Acute Elevated troponin Acute Extensor tendon laceration of left hand with open wound Acute Laceration of right hand Acute Metabolic acidosis Acute Methamphetamine abuse Acute
[2017-04-12] MEDS: HYDROmorphONE/DILAUDID 4 MG TAB PO PRN ×2 (10:16→19:17)
--- NOTE | 2017-04-12 10:56 | SOAPPROG ---
SOAP Progress Note Assessment/Plan: Assessment/Plan: L hand dorsal laceration involving extensor tendons s/p extensor tendon repair of 2nd, 3rd and 4th performed by Dr. Garsia on 2016, POD#2 -Cont current pain regimen as tolerated -Cont PT/OT, remain in splint -Passive extension exercises reviewed yesterday w/ Dr. Garsia -Pt ok to d/c from ortho standpoint -M1 hold likely to discontinue today -Pt will f/u w/ Dr. Garsia as an outpatient 10 days postop 04/12/17 10:53 Subjective: Pt seen at bedside, awoken. States some increased pain from yesterday, but controlled on Diluadid. He notes he is very tired. He denies any n/t of the affected hand/digits, as well as increased swelling. He also denies any f/c/n/ v. He has no additional concerns or complaints at this time. Objective: Vital Signs Temp Pulse Resp BP Pulse Ox 36.8 C 60 18 118/100 H 97 04/12/17 07:38 04/12/17 07:38 04/12/17 07:38 04/12/17 07:38 04/12/17 07:38 Laboratory Results 04/12/17 06:10 04/12/17 06:10 04/11/17 04/12/17 04/13/17 05:59 05:59 05:59 Intake Total 2750 3073 Output Total 1950 5 Balance 800 3068 Pt seen at bedside. Awoken for exam. Pleasant and cooperative with exam. VSS. Exam of LUE reveals intact postop splint. No significant surrounding swelling, discharge, erythema, calor of induration noted. Forearm compartments are supple. Pt has intact light touch sensation distally, and moves fingers well within limits. DNVI BUE. ICD10 Worksheet Patient Problems: Problems Problem Status Onset Acute renal failure (ARF) Acute Elevated troponin Acute Extensor tendon laceration of left hand with open wound Acute Laceration of right hand Acute Metabolic acidosis Acute Methamphetamine abuse Acute - ICD10 Problem Qualifiers (1) Extensor tendon laceration of left hand with open wound Qualifiers: Encounter type: initial encounter Qualified Code(s): S66.822A - Laceration of other specified muscles, fascia and tendons at wrist and hand level, left hand, initial encounter; S61.402A - Unspecified open wound of left hand, initial encounter
--- NOTE | 2017-04-12 11:52 | TRAUMAPN ---
Assessment/Plan: PAD#2 POD#1 04/11/2017 Assessment: C/o of back ache and tiredness. CK dramatically up concern for rhabdomyolysis continues. Still on M1 Hold Plan: Continue hydration, Check UA, repeat labs in AM Safe place for discharge in the works! 04/12/2017 Assessment: Sleeping excessively ( 12h ) No complaints Plan : May transfer out of unit Objective: Vital Signs Temp Pulse Resp BP Pulse Ox 36.8 C 60 18 118/100 H 97 04/12/17 07:38 04/12/17 07:38 04/12/17 07:38 04/12/17 07:38 04/12/17 07:38 Laboratory Results 04/12/17 06:10 04/12/17 06:10 04/11/17 04/12/17 04/13/17 05:59 05:59 05:59 Intake Total 2750 3073 Output Total 1950 5 Balance 800 3068 Physical Exam - Physical Exam General Appearance: WD/WN, alert, no apparent distress Neck: non-tender, full range of motion, supple Respiratory: chest non-tender, lungs clear, normal breath sounds Cardiac/Chest: regular rate, rhythm Abdomen: normal bowel sounds, non-tender, soft Male Genitalia: deferred Rectal: deferred Back: Normal inspection Skin: normal color, warm/dry Extremities: normal range of motion, non-tender, other (Right hand healing well , left hand per ortho) Neuro/Psych: alert, normal mood/affect, oriented x 3 Time Spent w/Patient (minutes): 30
[2017-04-12] MEDS: NS 1,000 ML IV SCH (14:28)
--- NOTE | 2017-04-12 14:40 | HOSPPROG ---
Hospitalist Progress Note Assessment/Plan: 26 yo M w meth use admitted w intoxication, svt, hypernatremia rhabdomyolysis (improving) -decrease ivf to 200ml/hr -repeat cpk in am SVT: resolved 2/2 meth use + trop: likely from SVT + meth echo w posterior WMA but intact LVEF discussed w dr velarde hypernatremia: resolved 2/2 free h20 depletion meth use: rec cessation preop: medically OK for extensor tendon repair schizophrenia: restart zyprexa proph: lmwh remove merrill after surgery pt is high risk Subjective: no acute complaints Objective: Vital Signs Temp Pulse Resp BP Pulse Ox 36.5 C 63 16 112/62 92 04/12/17 11:58 04/12/17 11:58 04/12/17 11:58 04/12/17 11:58 04/12/17 11:58 Laboratory Results 04/12/17 06:10 04/12/17 06:10 04/11/17 04/12/17 04/13/17 05:59 05:59 05:59 Intake Total 2750 3073 Output Total 1950 5 Balance 800 3068 - Physical Exam Constitutional: no apparent distress, appears nourished, not in pain Cardiovascular: regular rate and rhythym, no murmur, rub, or gallop Respiratory: no respiratory distress, no rales or rhonchi, clear to auscultation Gastrointestinal: normoactive bowel sounds, soft, non-tender abdomen, no palpable masses ICD10 Worksheet Patient Problems: Problems Problem Status Onset Extensor tendon laceration of left hand with open wound Acute Laceration of right hand Acute Metabolic acidosis Acute Acute renal failure (ARF) Acute Methamphetamine abuse Acute Elevated troponin Acute
[2017-04-12] MEDS ORDERED: HYDROmorphONE/DILAUDID 2 MG TAB PO PRN (19:14)
[2017-04-12] MEDS: OLANZapine 10 MG TAB PO SCH (20:22)
[2017-04-13 05:10] LABS: % IMMATURE GRANULYOCYTES 0.3 % (0.0-1.1); ABSOLUTE IMMATURE GRANULOCYTES 0.02 10^3/uL (0.00-0.10); ADD DIFF? NO; ADD MORPH? NO; ADD SCAN? NO; ATYPICAL LYMPHOCYTE FLAG 10 (0-99); FRAGMENT RBC FLAG 0 (0-99); HEMATOCRIT 36.9 % (40.0-51.0); HEMOGLOBIN 12.6 g/dL (13.7-17.5); LEFT SHIFT FLG 0 (0-99); LIPEMIA HEMOLYSIS FLAG 90 (0-99); MEAN CELL HEMOGLOBIN 31.1 pg (27.9-34.1); MEAN CELL HEMOGLOBIN CONCENTR. 34.1 g/dL (32.4-36.7); MEAN CELL VOLUME 91.1 fL (81.5-99.8); MEAN PLATELET VOLUME 9.4 fL (8.7-11.7); PLATELET CLUMPS FLAG 10 (0-99); PLATELET COUNT 131 10^3/uL (150-400); RED BLOOD CELL COUNT 4.05 10^6/uL (4.40-6.38); RED CELL DISTRIBUTION WIDTH 12.9 % (11.5-15.2)
[2017-04-13 05:30] LABS: ALANINE AMINOTRANSFERASE 64 IU/L (21-72); ALKALINE PHOSPHATASE 56 IU/L (38-126); ANION GAP 7 mEq/L (8-16); ASPARTATE AMINOTRANSFERASE 88 IU/L (17-59); BILIRUBIN,TOTAL 0.4 mg/dL (0.1-1.4); CALCIUM 8.8 mg/dL (8.5-10.4); CARBON DIOXIDE 22 mEq/l (22-31); CHLORIDE 111 mEq/L (97-110); CREATININE 0.8 mg/dL (0.7-1.3); GLOMERULAR FILTRATION RATE > 60; GLUCOSE 80 mg/dL (70-100); POTASSIUM 4.3 mEq/L (3.5-5.2); SODIUM 140 mEq/L (134-144); TOTAL PROTEIN 5.3 g/dL (6.3-8.2)
[2017-04-13 05:55] LABS: CK-MB INTERPRETATION NEGATIVE (NEGATIVE); CREATINE KINASE-MB FRACTION 2.64 ng/mL (0-3.19)
--- NOTE | 2017-04-13 06:45 | SOAPPROG ---
SOAP Progress Note Assessment/Plan: Assessment/Plan: L hand dorsal laceration involving extensor tendons s/p extensor tendon repair of 2nd, 3rd and 4th performed by Dr. Garsia on 2016, POD#3 -Cont current pain regimen as tolerated -Cont PT/OT, remain in splint -Passive extension exercises reviewed yesterday w/ Dr. Garsia -Pt ok to d/c from ortho standpoint -Pt will f/u w/ Dr. Garsia as an outpatient 10 days postop 04/13/17 06:45 Subjective: No complaints of significant pain, no new onset n/t. Tolerating diet/meds well. No additional concerns or complaints at this time. Objective: Vital Signs Temp Pulse Resp BP Pulse Ox 36.7 C 49 L 16 118/66 94 04/13/17 04:00 04/13/17 04:00 04/13/17 04:00 04/13/17 04:00 04/13/17 04:00 Laboratory Results 04/13/17 05:01 04/13/17 05:01 04/12/17 04/13/17 04/14/17 05:59 05:59 05:59 Intake Total 3073 1200 Output Total 5 Balance 3068 1200 VSS. NAD. Pt awoken for exam. Pleasant and cooperative. Post of splint in place on LUE. Pt moves fingers well w/in limits. No significant surrounding erythema, calor, discharge or induration. Forearm compartment is supple. DNVI BUE. ICD10 Worksheet Patient Problems: Problems Problem Status Onset Acute renal failure (ARF) Acute Elevated troponin Acute Extensor tendon laceration of left hand with open wound Acute Laceration of right hand Acute Metabolic acidosis Acute Methamphetamine abuse Acute - ICD10 Problem Qualifiers (1) Extensor tendon laceration of left hand with open wound Qualifiers: Encounter type: initial encounter Qualified Code(s): S66.822A - Laceration of other specified muscles, fascia and tendons at wrist and hand level, left hand, initial encounter; S61.402A - Unspecified open wound of left hand, initial encounter
[2017-04-13 07:24] VITALS: BP 109/68; TEMP 97.9; O2SAT 95
[2017-04-13] MEDS: ENOXAPARIN 30 MG/0.3 ML SYR SC SCH (08:46)
[2017-04-13] MEDS: NS 1,000 ML IV SCH (08:46)
[2017-04-13 10:01] VITALS: PULSE 45; RESP 14
--- NOTE | 2017-04-13 10:23 | GDS ---
[f rep st] DISCHARGE SUMMARY DISCHARGE DIAGNOSES: 1. Acute methamphetamine intoxication. 2. Supraventricular tachycardia due to above. 3. Left hand laceration with extensor tendon injury, status post repair. 4. Hypernatremia. 5. Acute kidney injury. 6. Rhabdomyolysis. 7. Leukocytosis. 8. Schizophrenia. CONSULTANTS: Dr. Real, Trauma Surgery. Dr. Garsia, Hand Surgery. Dr. Franks, Cardiology. HOSPITAL COURSE: 1. Methamphetamine intoxication: The patient was admitted to the Intensive Care Unit, where he did have a bout of SVT. He was seen by Cardiology. His SVT was self-limited. Now he is in sinus rhyt hm. 2. Rhabdomyolysis: The patient's initial set CK on presentation was 1,100, but increased greater t hairston 30,000 on 04/10/2017. He was started on IV fluids. On day of discharge, his creatine kinase is 2,405. 3. Acute kidney injury: The patient's initial creatinine was 3, and is down to 0.8 on day of disch arge. He has been followed by Nephrology during his stay. 4. Left extensor tendon lacerations to the 2nd, 3rd, and 4th fingers: The patient was seen by Dr. Garsia, and underwent repair of his extensor tendon lacerations to the 2nd, 3rd, and 4th fingers on 0 04/10/2017. Prior to discharge he was given hand exercises and instructions to follow up with Dr. Harsha peacock in 10 days for wound check. PHYSICAL EXAM: VITAL SIGNS: On day of discharge, blood pressure 109/68, pulse 97, respiratory rate 16, O2 sat 95% on room air. Temperature afebrile. GENERAL: No acute distress. HEART: S1, S2. LUNGS: Clear. ABDOMEN: Soft. EXTREMITIES: No edema. PROCEDURES DONE THIS HOSPITAL STAY: Extensor tendon repair done by Dr. Garsia on 04/10/2017, refer t o report. DISCHARGE MEDICATIONS: Please refer to discharge medication reconciliation [facility] for details. DISCHARGE INSTRUCTIONS: The patient will be discharged from the hospital, where he should follow up with Dr. Garsia in 10 days. He has been given instructions on red flag symptoms for postoperative i nfection. He was instructed to avoid illicit drugs. He should follow up with his primary care prov ider in the next week for routine posthospitalization followup. /[id number]/MODL
== END 2017-04-13 11:20 | disposition home or self-care (01) | DRG 513 ==
LOC: EDUNIT# → EEVIPCON 17:53 → OBSVTOIN 17:53 → EEVIPCON 17:53 → F2N 20:13 → F3N 04-12 11:54
PROVIDERS: ADMIT Family Medicine; ATTEND Family Medicine
PROC: 0LQ80ZZ Repair Left Hand Tendon, Open Approach (ICD-10-PCS; principal; 2017-04-10 17:45)
DX: S66.822A Laceration of other specified muscles, fascia and tendons at wrist and hand level, left hand, initial encounter (principal); F15.121 Other stimulant abuse with intoxication delirium; F15.188 Other stimulant abuse with other stimulant-induced disorder; I47.1 Supraventricular tachycardia; N17.9 Acute kidney failure, unspecified; E87.2 Acidosis; E87.0 Hyperosmolality and hypernatremia; T79.6XXA Traumatic ischemia of muscle, initial encounter; R79.89 Other specified abnormal findings of blood chemistry; E83.39 Other disorders of phosphorus metabolism; E83.52 Hypercalcemia; S61.411A Laceration without foreign body of right hand, initial encounter; S61.511A Laceration without foreign body of right wrist, initial encounter; S80.211A Abrasion, right knee, initial encounter; S80.212A Abrasion, left knee, initial encounter; W25.XXXA Contact with sharp glass, initial encounter; Y35.893A Legal intervention involving other specified means, suspect injured, initial encounter; Y92.009 Unspecified place in unspecified non-institutional (private) residence as the place of occurrence of the external cause; F17.210 Nicotine dependence, cigarettes, uncomplicated; F12.90 Cannabis use, unspecified, uncomplicated; F20.9 Schizophrenia, unspecified
CPT/HCPCS: 80305; 82947-QW; 96365; 97165-GO; 97535-GO; G0480; J0690; J1650; J2060; J2250; J2704; J3010

== ENCOUNTER 2017-04-17 08:51 | Emergency (ER) | payer MEDICAID ==
[2017-04-17 08:58] VITALS: BP 120/83; PULSE 87; RESP 18; TEMP 97.5; O2SAT 96
--- NOTE | 2017-04-17 09:57 | EDPHY ---
H & P Stated Complaint: Lower back pain since [facility] 04/11-no trauma or urinary complaints Time Seen by Provider: 04/17/17 09:03 HPI/ROS: CHIEF COMPLAINT: low back pain HISTORY OF PRESENT ILLNESS: 26-year-old male arrives via private vehicle complaining of back pain since being discharged from the hospital few days ago. He was initially seen in the emergency department 04/09/2017 after patient had been using methamphetamine, had barricaded himself in his apartment had to be extricated by police. He initially broken out the windows however he did not jump out of a window. He denies known trauma at that time but does state that he is mildly amnestic to events. He denies: Incontinence, retention, saddle anesthesia, fever, chills, flu-like symptomsThe, headache, nuchal rigidity, lower extremity paresthesia, testicular pain. Has been sober from methamphetamine since hospital admission REVIEW OF SYSTEMS: A ten point review of systems was performed and is negative with the exception of the items mentioned in the HPI PAST MEDICAL & SURGICAL HISTORY: History of hospitalization for acute methamphetamine abuse and rhabdomyolysis SOCIAL HISTORY: History of methamphetamine abuse PHYSICAL EXAM (Prior to examination, patient consented to physical exam, hands were washed and my usual and customary physical exam procedures followed) 1) GENERAL: Well-developed, well-nourished, alert and oriented. Appears to be in no acute distress. answering questions appropriately 2) HEAD: Normocephalic, atraumatic 3) HEENT: Pupils equal, round, reactive to light bilaterally. Sclera anicteric. 4) NECK: Full range of motion, no meningeal signs. 5) LUNGS: Clear auscultation bilaterally, no wheezes, no rhonchi, no retractions. 6) HEART: Regular rate and rhythm, no murmur, no heave, no gallop. 7) ABDOMEN: No guarding, no rebound, no focal tenderness, negative McBurney's, negative Medel's, negative Rovsing's, negative peritoneal sign, 8) MUSCULOSKELETAL: Moving all extremities, no focal areas of tenderness, no obvious trauma. No peripheral edema or discoloration. 9) BACK: tender to palpation paraspinous muscle. No CVA tenderness, no midline vertebral tenderness, no fluctuance, no step-off, no obvious trauma, no visual or palpable abnormality. Patella, Achilles reflexes intact to bilateral strength 5/5 10) SKIN: No rash, no petechiae. 11) NEURO: Awake, alert, and oriented to person, place and time. Answers questions appropriately. There were no obvious focal neurologic abnormalities. No cerebellar dysfunction. Normal steady gait. Upper and lower extremities bilaterally with strength 5 / 5, reflexes 2+.. DIFFERENTIAL DIAGNOSIS: In no particular order, including but not limited to, fracture, sprain/strain, cauda equina, spinal infectious etiology. MEDICAL DECISION MAKING 9:50 a.m.: I have reviewed the patient's old medical records and I do not identify documentation of imaging of the lumbar spine at his prior emergency department visit for admission. Plan will be plain x-rays of the back to rule out acute osseous injury. At this time he is afebrile, neurologically intact lower extremities, no midline pain or fluctuance, no flu-like symptoms. I think that spinal infectious etiology such as epidural abscess, diskitis, less than likely although I have discussed with him that due to his history of IV drug use he is at risk for this. Discussed case with primary supervising physician Dr Sosa in ER. The patient was re-evaluated with serial examinations, he remains with an intact neurologic examination, no incontinence, retention, no saddle anesthesia , patella Achilles reflexes intact to bilaterally, afebrile, no flu-like symptoms. I reviewed his normal x-ray of his back, informed him of the limitations of x-rays no diagnosis of back pain informed that soft tissue injury is not ruled out. At this time however have informed him that I have a lower index of suspicion for cauda equina, epidural abscess, epidural hematoma, lumbar myositis, diskitis, as the patient is neurologically intact in the lower extremities, has patella and Achilles reflexes intact and equal bilaterally, has no neurologic deficits, no incontinence, no retention, no midline pain, no fluctuance, afebrile, no flulike symptoms. Pain may be secondary to muscular strain, may be secondary to discogenic etiology. At this point I do not identify definitive indication for emergent MRI, however patient may necessitate this on an outpatient basis. Patient given acute back pain precautions. Patient verbalizes understanding of discharge instructions. I believe them be competent decision-makers. All questions and concerns have been addressed by me. Ample opportunity for questions have been provided . The patient understands that this diagnosis is provisional and can never be 100 % accurate. Usual and customary warnings were given concerning the clinical impression and all the patient's questions were answered. The patient was instructed to return to the emergency department should her symptoms worsen or return, or develop any new symptoms, otherwise to followup as directed in discharge instructions. - Personal History Current Tetanus/Diphtheria Vaccine: Unsure Current Tetanus Diphtheria and Acellular Pertussis (TDAP): Unsure - Medical/Surgical History Hx Asthma: No Hx Chronic Respiratory Disease: No Hx Diabetes: No Hx Cardiac Disease: No Hx Renal Disease: No Hx Cirrhosis: No Hx Alcoholism: No Hx HIV/AIDS: No Hx Splenectomy or Spleen Trauma: No Other PMH: hx high "CK" levels, drug abuse, METH USE. surgery L hand 04/23. elevated creatinine 04/23 - Social History Smoking Status: Current every day smoker Constitutional: Initial Vital Signs Temperature (C) 36.4 C 04/17/17 08:53 Heart Rate 87 04/17/17 08:53 Respiratory Rate 18 04/17/17 08:53 Blood Pressure 120/83 H 04/17/17 08:53 O2 Sat (%) 96 04/17/17 08:53 O2 Delivery Mode Room Air Allergies/Adverse Reactions: No Known Allergies Allergy (Verified 12/10/16 16:47) Home Medications: Medication Instructions Recorded OLANZapine [Zyprexa] 10 mg PO HS 04/10/17 Medical Decision Making - Diagnostics Imaging Results: Imaging Impressions Lumbar Spine X-Ray 04/17/17 09:46 Impression: No acute findings in the lumbar spine. Images reviewed by myself Departure - Departure Disposition: Home, Routine, Self-Care Clinical Impression: Low back pain Qualifiers: Chronicity: acute Back pain laterality: bilateral Sciatica presence: without sciatica Qualified Code(s): M54.5 - Low back pain Condition: Good Instructions: Low Back Strain (ED) Additional Instructions: Seek medical attention if you develop new or worsening pain, if you develop bladder or bowel dysfunction, numbness around your perineum, foot drop, or any other symptoms that concern you. Pediatric Fever & Pain Control: For fever/pain control we recommend: Acetaminophen (Tylenol) 650mg every 4 to 6 hours as needed Ibuprofen (Advil, Motrin) 600mg every 6 hours as needed. *Acetaminophen and Ibuprofen may be given in alternating doses or at the same time for high fever. (NOTE TIME DIFFERENCES) NEVER GIVE ASPIRIN TO AN OR CHILD. WARNING: THESE MEDICATIONS COME IN DIFFERENT STRENGTHS FOR INFANTS AND CHILDREN. BEFORE GIVING YOUR CHILD A DOSE OF MEDICATION, MAKE SURE THAT YOU ARE GIVING THE APPROPRIATE AMOUNT. Measurements: 1 teaspoon=5ml 1/2 teaspoon =2.5ml
== END 2017-04-17 10:55 | disposition home or self-care (01) ==
DX: M54.5 Low back pain (principal); F17.200 Nicotine dependence, unspecified, uncomplicated

== ENCOUNTER 2017-11-25 20:24 | Inpatient (IN) | payer MEDICAID ==
[2017-11-25] MEDS ORDERED: PERPHENAZINE 2 MG TAB PO SCH (21:00)
[2017-11-25] MEDS ORDERED: OLANZapine 10 MG/2 ML VIAL ONE (21:08)
--- NOTE | 2017-11-25 21:20 | EDPHY ---
H & P Smoking Status: Current every day smoker Time Seen by Provider: 11/25/17 20:54 HPI/ROS: CHIEF COMPLAINT: Paranoid HISTORY OF PRESENT ILLNESS: 26-year-old male with a known history of paranoid schizophrenia presents to the emergency department with his mother acting paranoid and delusional. Patient has been off of his psychiatric medications for several days. He admits to smoking marijuana today. He last used methamphetamines in July 2017. He denies feeling suicidal or homicidal. He denies auditory or visual hallucinations. Currently he has no physical complaints. REVIEW OF SYSTEMS: Constitutional: No fever, no chills. Eyes: No double or blurry vision. ENT: No sore throat. Respiratory: No cough, no shortness of breath. Cardiac: No chest pain. Gastrointestinal: No abdominal pain, vomiting or diarrhea. Genitourinary: No dysuria. Musculoskeletal: No neck or back pain. Skin: No rashes. Neurological: No headache. (Sandee Holt) Past Medical/Surgical History: Paranoid schizophrenia, substance abuse (Sandee Holt) Social History: Homeless (Sandee Holt) Physical Exam: General Appearance: Alert, anxious, paranoid. Patient is diaphoretic. Eyes: Pupils equal and round. Extraocular motions are all intact. ENT: Mouth: Mucous membranes moist. Respiratory: No wheezing, rhonchi, or rales, lungs are clear to auscultation. Cardiovascular: Regular rate and rhythm. Gastrointestinal: Abdomen is soft and nontender, no masses, no rebound or guarding, bowel sounds normal. Neurological: Uncooperative, cannot determine. Skin: Warm and dry, no rashes. Musculoskeletal: Nontender to palpate along the cervical, thoracic or lumbar spine. Neck is supple. Extremities: Full range of motion and no peripheral edema. Psychiatric: Agitated. (Sandee Holt) Constitutional: Initial Vital Signs Temperature (C) 36.8 C 11/25/17 20:27 Heart Rate 150 H 11/25/17 20:27 Respiratory Rate 20 11/25/17 20:27 Blood Pressure 156/108 H 11/25/17 20:27 O2 Sat (%) 94 11/25/17 20:27 O2 Delivery Mode Nasal Cannula O2 (L/minute) 4 Allergies/Adverse Reactions: No Known Allergies Allergy (Verified 12/10/16 16:47) Home Medications: Medication Instructions Recorded OLANZapine [Zyprexa] 10 mg PO HS 04/10/17 Perphenazine 4 mg PO 11/25/17 Medical Decision Making - Diagnostics Imaging Results: Imaging Impressions Chest X-Ray 11/25/17 21:52 Impression: Clear lungs. Negative portable chest. ED Course/Re-evaluation: 26-year-old male with a known history of paranoid schizophrenia presents to the emergency department with his mother. He has been off his medications. His mother thinks that he used methamphetamines today. The patient states that he has not used methamphetamines since July. He admits to smoking marijuana today. The patient is diaphoretic extremely agitated. Patient was placed on M1 hold. The case was discussed with Dr. Sosa, secondary supervising physician, who assumed care of this patient. (Sandee Holt) Differential Diagnosis: Including but not limited to hypoglycemia, infectious process, electrolyte abnormality, head injury and intoxicants. (Sandee Holt) Critical Care Time: Critical care time exclusive of procedures and exclusive of the PA's time was 60 minutes, performed by myself, Biju Sosa MD. The patient presents to the ED acute agitation from methamphetamine overdose. The patient required physical and chemical restraints. He required multiple doses of IV Ativan. He has multiple metabolic derangements. The patient continues to be quite tachycardic and diaphoretic. He is not medically cleared. He will require intensive care unit admission. I discussed the case with Dr. Butt from the hospitalist service who will admit the patient. (Biju Sosa) Other Provider: Independent physician evaluation: Chief complaint: Methamphetamine use, agitated, diaphoretic, combative I evaluated and participated in the management of the patient. I also evaluated the patient independently. My co-signature indicates that I have reviewed this chart and I agree with the findings and plan of care as documented. My personal H&P findings include: The patient presents to the ED with acute altered mental status. He reportedly has a history of schizophrenia and has been off of his antipsychotic medication. The patient also has a history of methamphetamine abuse requiring ICU hospitalization for rhabdomyolysis and renal failure. The patient is acutely agitated, tachycardic and psychotic. The patient attempted to elope from the emergency department and had to be physically and chemically restrained. The patient tells me that he was using methamphetamine earlier today. Physical exam General Appearance: Agitated, diaphoretic, uncooperative Eyes: Pupils equal and round no pallor or injection ENT, Mouth: Dry mucous membranes, poor dentition Respiratory: There are no retractions, lungs are clear to auscultation Cardiovascular: Tachycardic Gastrointestinal: Abdomen is soft and nontender, no masses, bowel sounds normal Neurological: Grossly normal motor exam Skin: Warm and dry, no rashes Musculoskeletal: Neck is supple nontender Extremities: symmetrical, full range of motion Psychiatric: Agitated, psychotic, combative ED course The patient was given 10 mg of IM Zyprexa and 2 mg of IV Ativan for chemical restraint. I reviewed the patient's past medical records. The patient is tachycardic and presents to the ED with psychosis unlikely methamphetamine intoxication. The patient received additional 2 mg of IV Ativan. Is placed on a monitoring analyst. His chest x-ray demonstrates no evidence of an obvious aspiration, heart failure or cardiomegaly. The patient's initial laboratory studies do demonstrate evidence of hemoconcentration. 2 L of normal saline have been ordered. His initial CPKs reassuring. He has no evidence of renal failure. He does have hypernatremia. The patient continues to be tachycardic and agitated. I am quite suspicious he is having significant methamphetamine intoxication. I do feel the patient requires additional sedating. He is clearly at risk for developing rhabdomyolysis. I do feel the patient may need to be put on a Precedex drip or Ativan drip. Consultation was made with the hospitalist service at 11:00 p.m.. (Biju Sosa) - Data Points Laboratory Results: Laboratory Results 11/25/17 21:31 18 21:31 11/25/1718 21:31 21:31 WBC 17.19 10^3/uL H 10^3/uL (3.80-9.50) RBC 6.33 10^6/uL 10^6/uL (4.40-6.38) Hgb 20.1 g/dL H* g/dL (13.7-17.5) Hct 61.9 % H* % (40.0-51.0) MCV 97.8 fL fL (81.5-99.8) MCH 31.8 pg pg (27.9-34.1) MCHC 32.5 g/dL g/dL (32.4-36.7) RDW 12.5 % % (11.5-15.2) Plt Count 380 10^3/uL 10^3/uL (150-400) MPV 9.6 fL fL (8.7-11.7) Neut % (Auto) 65.8 % % (39.3-74.2) Lymph % (Auto) 25.2 % % (15.0-45.0) [place] % (Auto) 7.8 % % (4.5-13.0) Eos % (Auto) 0.1 % L % (0.6-7.6) Baso % (Auto) 0.3 % % (0.3-1.7) Nucleat RBC Rel Count 0.0 % % (0.0-0.2) Absolute Neuts (auto) 11.30 10^3/uL H 10^3/uL (1.70-6.50) Absolute Lymphs (auto) 4.34 10^3/uL H 10^3/uL (1.00-3.00) Absolute Monos (auto) 1.34 10^3/uL H 10^3/uL (0.30-0.80) Absolute Eos (auto) 0.01 10^3/uL L 10^3/uL (0.03-0.40) Absolute Basos (auto) 0.06 10^3/uL 10^3/uL (0.02-0.10) Absolute Nucleated RBC 0.00 10^3/uL 10^3/uL (0-0.01) Immature Gran % 0.8 % % (0.0-1.1) Immature Gran # 0.14 10^3/uL H 10^3/uL (0.00-0.10) Sodium 158 mEq/L H mEq/L (135-145) Potassium 4.5 mEq/L mEq/L (3.5-5.2) Chloride 104 mEq/L mEq/L (97-110) Carbon Dioxide < 5 mEq/l L* mEq/l (22-31) Anion Gap TNP BUN 9 mg/dL mg/dL (7-23) Creatinine 1.6 mg/dL H mg/dL (0.7-1.3) Estimated GFR 53 Glucose 230 mg/dL H mg/dL (70-100) Calcium 10.7 mg/dL H mg/dL (8.5-10.4) Phosphorus 6.5 mg/dL H mg/dL (2.5-4.5) Creatine Kinase 199 IU/L IU/L (0-224) Ethyl Alcohol < 10 mg/dL mg/dL (0-10) Medications Given: Discontinued Medications Sodium Chloride (Ns) 1,000 mls @ 0 mls/hr IV ONCE ONE; Wide Open PRN Reason: Protocol Stop: 11/25/17 21:35 Last Admin: 11/25/17 21:45 Dose: 1,000 mls Sodium Chloride (Ns) 1,000 mls @ 0 mls/hr IV EDNOW ONE; Wide Open PRN Reason: Protocol Stop: 11/25/17 22:02 Last Admin: 11/25/17 22:30 Dose: 1,000 mls Dexmedetomidine HCl 400 mcg/ (Sodium Chloride) 104 mls @ 0 mls/hr IV CONT DEVANTE; Titrate PRN Reason: Protocol Stop: 05/24/18 22:59 Last Admin: 11/25/17 23:22 Dose: 104 mls Sodium Chloride (Ns) 1,000 mls @ 0 mls/hr IV ONCE ONE PRN Reason: Wide Open Stop: 11/25/17 23:33 Last Admin: 11/25/17 23:32 Dose: 1,000 mls Lorazepam (Ativan Injection) 2 mg IV EDNOW ONE Stop: 11/25/17 21:35 Last Admin: 11/25/17 21:45 Dose: 2 mg Lorazepam (Ativan Injection) 2 mg IVP EDNOW ONE Stop: 11/25/17 21:52 Last Admin: 11/25/17 22:15 Dose: 2 mg Olanzapine (Zyprexa Im Injection) 10 mg IM EDNOW ONE Stop: 11/25/17 21:35 Last Admin: 11/25/17 21:30 Dose: 10 mg Departure - Departure Disposition: [facility] Clinical Impression: Methamphetamine abuse, Hypernatremia Schizophrenia Qualifiers: Schizophrenia type: unspecified Qualified Code(s): F20.9 - Schizophrenia, unspecified Condition: Critical
[2017-11-25] MEDS ORDERED: LORazepam 2 MG/ML INJ ONE (21:23)
[2017-11-25] MEDS ORDERED: NS 1,000 ML IV ONE ×3 (21:34→23:32)
[2017-11-25] MEDS ORDERED: LORazepam 2 MG/ML INJ IV ONE (21:34)
[2017-11-25] MEDS ORDERED: OLANZapine 10 MG/2 ML VIAL IM ONE (21:34)
[2017-11-25] MEDS ORDERED: LORazepam 2 MG/ML INJ IVP ONE ×2 (21:51→22:50)
[2017-11-25 21:53] LABS: PLATELET COUNT 380 10^3/uL (150-400)
[2017-11-25 21:59] LABS: CREATINE KINASE 199 IU/L (0-224)
[2017-11-25] MEDS ORDERED: ONDANSETRON 4 MG/2 ML VIAL IVP PRN (22:57)
[2017-11-25] MEDS ORDERED: LORazepam 2 MG/ML INJ IVP PRN (22:57)
[2017-11-25] MEDS ORDERED: DEXMEDETOMIDINE HCL 400 MCG in NS 100 ML IV SCH (23:00)
--- NOTE | 2017-11-25 23:57 | PDGENHP ---
History and Physical - Chief Complaint paranoid, anxiety - History of Present Illness Source-patient is able to provide majority of the history. He was initially quite agitated in the emergency department requiring restraint the time of my interview patient received some sedation he was sitting up alert and interactive. History provided is consistent with that given to the ED provider. Case was also discussed with ED providers. HPI - 26-year-old gentleman with past medical history significant for schizophrenia in methamphetamine abuse who presents to the emergency department today with his mother by private vehicle after patient was complaining of increasing paranoia and anxiety. Patient reports that he has been off of his perphenizine antipsychotic reported it just a few days however patient's accompanying medication bottle was last filled October 06, 2017 with at least a half bottle remaining. Patient currently denying any SI or HI. He denies any auditory or visual hallucinations. Patient with a previous hospitalist admission 04/26/2017 similarly with methamphetamine toxicity paranoia and agitation requiring hospitalization stabilization. Patient again with use of methamphetamines in presents similarly with increased altered mental status confusion agitation. In the emergency department patient required 4 point restraint as well as chemical restraints for increasing danger to himself and staff. Patient without complaints of recent illnesses. He did complain of some constipation to the ED provider otherwise he denies any ongoing issues at this time aside from his psychiatric. Patient is complaining of feeling significantly dehydrated. He denies any myalgias, chest pain, shortness of breath. History Information - Allergies/Home Medication List Allergies/Adverse Reactions: No Known Allergies Allergy (Verified 12/10/16 16:47) Home Medications: OLANZapine [Zyprexa] 10 mg PO HS 04/10/17 [Last Taken 04/08/17] Perphenazine 4 mg PO 11/25/17 [Last Taken Unknown] I have personally reviewed and updated: family history, medical history, social history, surgical history - Past Medical History Additional medical history: Schizophrenia, tobacco abuse, methamphetamine abuse. - Surgical History Reports: no pertinent surgical hx Additional surgical history: Patient denies - Family History Additional family history: Patient reports family members are healthy. Mother with a history of gynecologic issues. - Social History Smoking Status: Current every day smoker (One pack per day) Tobacco Use: Cigarettes Drug Use: Marijuana, Other (Methamphetamine) Review of Systems Review of Systems: ROS: 10pt was reviewed & negative except for what was stated in HPI & below Constitutional: Denies: chills, fever Cardiac: Denies: chest pain, lightheadedness, palpitations Respiratory: Denies: cough, shortness of breath Gastrointestinal: Reports: constipation. Denies: vomitting, black stools, rectal bleeding, abdominal pain, nausea Genitourinary: Denies: dysuria, hematuria Muscolosketal: Denies: back pain, muscle pain Skin: Reports: no symptoms Neurological: Reports: emotional problems, other (Paranoia as above) Hematologic/Lymphatic: Reports: no symptoms Physical Exam Physical Exam: Patient seen in the ED status post Haldol, Ativan, initiation of Precedex drip. Patient is sitting up awake alert and interactive. Selected Entries 11/25/17 20:27 Blood Pressure Automatic Method Heart Rate 150 H Respiratory 20 Rate O2 Sat (%) 94 Temperature (C) 36.8 C Blood Pressure 156/108 H Mean Arterial 124 H Pressure (MAP) O2 Delivery Room Air Mode Temperature Oral Source Temp Pulse Resp BP Pulse Ox 36.8 C 144 H 29 H 128/84 H 98 11/25/17 20:27 11/25/17 23:31 11/25/17 23:31 11/25/17 23:31 11/25/17 23:31 O2 (L/minute) 4 Constitutional: no apparent distress, other (NAD. Patient appears flushed. Not acutely ill.) Eyes: PERRL (Decreased reactivity to light bilaterally but symmetric.), EOMI, scleral injection (Mild) Ears, Nose, Mouth, Throat: oral ulcer (Patient with dry cracking lips.), poor dentition, dry mucous membranes Cardiovascular: no murmur, rub, or gallop (Exam limited secondary to tachycardia ), pulses symmetric bilaterally, tachycardia (140s) Peripheral Pulses: 2+: dorsalis-pedis (R), dorsalis-pedis (L) Respiratory: no respiratory distress, no rales or rhonchi, clear to auscultation , No expiratory wheeze, No rhonchi Gastrointestinal: normoactive bowel sounds, soft, non-tender abdomen, no palpable masses, No tenderness, No guarding, No rebound, No distension Genitourinary: no bladder tenderness, No merrill in urethra Skin: warm, normal color, other (Patient appears flushed red in his face.), No mottled Musculoskeletal: other (Exam limited secondary to restraint placement. Patient is able to move his upper and lower extremities while in bed. Musculoskeletal exam limited but grossly normal. Patient remains restless and is fidgeting his lower extremities while lying in bed.) Neurologic: AAOx3, other (Grossly nonfocal.), No facial droop Psychiatric: interacting appropriately (Patient responding appropriately to questions. He becomes increasingly agitated when asking for his phone despite his restraints he tries to justify patient denies any SI/HI, VH/AH), flat affect , poor insight Lab Data & Imaging Review 11/25/17 21:31 11/25/17 21:31 WBC 17.19 10^3/uL (3.80-9.50) H 11/25/17 21: RBC 6.33 10^6/uL (4.40-6.38) 11/25/17 21: Hgb 20.1 g/dL (13.7-17.5) H* 11/25/17 21: Hct 61.9 % (40.0-51.0) H* 11/25/17 21: MCV 97.8 fL (81.5-99.8) 11/25/17 21: MCH 31.8 pg (27.9-34.1) 11/25/17 21: MCHC 32.5 g/dL (32.4-36.7) 11/25/17 21: RDW 12.5 % (11.5-15.2) 11/25/17 21: Plt Count 380 10^3/uL (150-400) 11/25/17 21: MPV 9.6 fL (8.7-11.7) 11/25/17 21:31 Neut % (Auto) 65.8 % (39.3-74.2) 11/25/17 21: Lymph % (Auto) 25.2 % (15.0-45.0) 11/25/17 21: [place] % (Auto) 7.8 % (4.5-13.0) 11/25/17 21: Eos % (Auto) 0.1 % (0.6-7.6) L 11/25/17 21: Baso % (Auto) 0.3 % (0.3-1.7) 11/25/17 21: Nucleat RBC Rel Count 0.0 % (0.0-0.2) 11/25/17 21: Absolute Neuts (auto) 11.30 10^3/uL (1.70-6.50) H 11/25/17 21: Absolute Lymphs (auto) 4.34 10^3/uL (1.00-3.00) H 11/25/17 21: Absolute Monos (auto) 1.34 10^3/uL (0.30-0.80) H 11/25/17 21: Absolute Eos (auto) 0.01 10^3/uL (0.03-0.40) L 11/25/17 21: Absolute Basos (auto) 0.06 10^3/uL (0.02-0.10) 11/25/17 21: Absolute Nucleated RBC 0.00 10^3/uL (0-0.01) 11/25/17: Immature Gran % 0.8 % (0.0-1.1) 11/25/17 21: Immature Gran # 0.14 10^3/uL (0.00-0.10) H 11/25/17 21: Sodium 158 mEq/L (135-145) H 11/25/17 21: Potassium 4.5 mEq/L (3.5-5.2) 11/25/17 21: Chloride 104 mEq/L (97-110) 11/25/17 21: Carbon Dioxide < 5 mEq/l (22-31) L* 11/25/17 21: Anion Gap TNP 11/25/17 21: BUN 9 mg/dL (7-23) 11/25/17 21: Creatinine 1.6 mg/dL (0.7-1.3) H 11/25/17 21: Estimated GFR 53 11/25/17 21: Glucose 230 mg/dL (70-100) H 11/25/17 21: Calcium 10.7 mg/dL (8.5-10.4) H 11/25/17 21: Phosphorus 6.5 mg/dL (2.5-4.5) H 11/25/17 21: Creatine Kinase 199 IU/L (0-224) 11/25/17 21:31 Ethyl Alcohol < 10 mg/dL (0-10) 11/25/17 21:31 Imaging Review: Portable Chest, Single View 10:00 PM Indication: Tachycardia hypoxemia Comparison: Portable chest dated April 09, 2017 Findings: Lungs are well aerated and clear. No airspace consolidation, edema or effusion. Heart size is normal. Impression: Clear lungs. Negative portable chest. Visualized and Interpreted Chest x-ray results: Yes Chest X-Ray results: normal Assessment & Plan Assessment: #Methamphetamine toxicity - patient remains significantly tachycardic hypertensive and agitated. CK is minimally elevated and he has significantly dehydrated. Patient has received IV fluid hydration. Given his increasing psychosis patient is requiring Precedex and will be admitted to the unit for higher level treatment. #Hypernatremia (Acute) - related to patient's severe dehydration. He is receiving 2-3 L in the emergency department before arrival up to the ICU. Will need to monitor his laboratory studies serially however this may be limited secondary to patient's willingness to cooperate and allow for lab draws. Given his elevated blood sugar his sodium does correct to 160 so slightly higher. Will try to correct slowly over the next 12:48 p.m. Will consider renal consult if any difficulties in adjustment of patient's sodium. #AK I - likely pre renal in setting of significant dehydration. Patient's creatinine is slightly elevated but anticipate this will improve after aggressive IV fluid hydration. #Schizophrenia (Acute) - will plan to resume patient's perphenazine this evening. Patient is status post Haldol and Ativan in the emergency department. Given his untreated schizophrenia and acute methamphetamine toxicity patient is currently requiring Precedex to assist with sedation. He continues to require restraint as he continues to be a danger to himself and staff. #Severe dehydration - continue with aggressive IV fluid hydration. Plan for serial BMPs as possible with patient's agitation as noted above. CK mildly elevated will plan to repeat again in the morning. #Secondary polycythemia - due to dehydration. will plan to monitor H&H with IV fluid hydration #Leukocytosis - likely reactive in setting of significant dehydration and methamphetamine toxicity. Patient is afebrile he denies any infectious symptoms at this time. Will monitor for any evidence of fever. Chest x-ray was clear. UA is pending. #Ag gap acidosis - patient likely with underlying lactic acidosis in setting of severe dehydration due to methamphetamine toxicity. Patient with significantly declined CO2. Will plan to repeat BMPs as possible and continue aggressive IV fluid rate harper for correction. # hypercalcemia-likely elevated in setting of severe dehydration. Continue with IV fluids and repeat BMP shortly. FEN - continue with aggressive IV fluid hydration as noted above. Advance diet as patient's mentation improves and his ability to cooperate safely. Electrolyte monitoring and plan as noted above. PPX - SCDs. Anticoagulation if patient should stay additional days. Cor-remain full at this time Disposition patient has been admitted to inpatient status in the ICU. Anticipate greater than 2 midnight stay given severity of patient's symptoms and laboratory derangements. Patient ultimately may require transfer to inpatient psychiatric facility once his medical issues are stabilized.
[2017-11-26] MEDS ORDERED: LORazepam 2 MG/ML INJ IVP ONE (00:12)
[2017-11-26] MEDS: DEXMEDETOMIDINE HCL 400 MCG in NS 100 ML IV SCH ×2 (00:27→05:43)
[2017-11-26] MEDS: NS 1,000 ML IV SCH ×2 (00:34→05:44)
[2017-11-26 02:11] LABS: PLATELET COUNT 174 10^3/uL (150-400)
[2017-11-26 02:33] LABS: CREATINE KINASE 1100 IU/L (0-224)
[2017-11-26] MEDS ORDERED: ENOXAPARIN 30 MG/0.3 ML SYR SC SCH (09:00)
[2017-11-26] MEDS: ENOXAPARIN 40 MG/0.4 ML SYR SC SCH (09:57)
--- NOTE | 2017-11-26 12:35 | PDMN ---
Medical Necessity Medical necessity: est los>2mn for meth toxicity, hypernatremia, severe dehydration, and TYLER; admit to ICU for Precedex, IVF, and restraints; comorbid schizophrenia, currently untreated; per order and H&P 11/25/17
[2017-11-26 13:20] VITALS: RESP 16
[2017-11-26 16:09] VITALS: O2SAT 94
--- NOTE | 2017-11-26 17:39 | HOSPPROG ---
Hospitalist Progress Note Assessment/Plan: # hyperNa - correctly quickly which was appropriate given patient's urgent need for IV fluids with mild rhabdo and severe dehydration; this was very likely acute and rapid correction is safe and appropriate in that setting # mild rhabdo - will repeat a CK now # methamphetamine intoxication - improved # TYLER - resolved # severe AGMA - resolved # polycythemia - d/t dehydration, resolved # leukocytosis d/t stress - much better # schizophrenia, on M1 hold - cleared for evaluation by [facility] Subjective: cooperative; slept most of the day, ambulated Objective: Vital Signs Temp Pulse Resp BP Pulse Ox 37 C 82 16 118/71 94 11/26/17 01:00 11/26/17 16:00 11/26/17 16:00 11/26/17 16:00 11/26/17 16:00 Laboratory Results 11/26/17 01:52 11/26/17 08:00 11/25/17 11/26/17 11/27/17 05:59 05:59 05:59 Intake Total 3430 Output Total 800 Balance 3430 -800 - Physical Exam Constitutional: no apparent distress Eyes: anicteric sclera Ears, Nose, Mouth, Throat: hearing normal Cardiovascular: No edema Respiratory: no respiratory distress Gastrointestinal: No distension Genitourinary: No merrill in urethra Skin: warm Musculoskeletal: full muscle strength Neurologic: AAOx3 Psychiatric: interacting appropriately ICD10 Worksheet Patient Problems: Problems Problem Status Onset Extensor tendon laceration of left hand with open wound Acute Laceration of right hand Acute Metabolic acidosis Acute Acute renal failure (ARF) Acute Methamphetamine abuse Acute Elevated troponin Acute Hypernatremia Acute Schizophrenia Acute
[2017-11-26 18:40] LABS: CREATINE KINASE 2385 IU/L (0-224)
[2017-11-26] MEDS ORDERED: PROPOFOL/EMULSION 1,000 MG/100 ML BOTTLE IV ONE (19:34)
[2017-11-26] MEDS ORDERED: PERPHENAZINE PO SCH (21:00)
[2017-11-26] MEDS ORDERED: PERPHENAZINE 4 MG PO SCH (21:00)
[2017-11-27 00:30] VITALS: BP 105/59; PULSE 64; TEMP 98
--- NOTE | 2017-11-27 08:33 | ASMTCMCOM ---
CM Note CM Note Notes: Chart reviewed. 26 year old male admitted via ED to ICU for methamphetamine use, tachycardia. He has history of schizophrenia and was brought in by his mother. Note in chart from [facility]. Patient to have [facility] mental health eval when medically cleared. CM to follow. Date Signed: 11/26/2017 02:55 PM Electronically Signed By:Keely León RN
[2017-11-27 08:39] LABS: CREATINE KINASE 2087 IU/L (0-224)
[2017-11-27] MEDS: ENOXAPARIN 40 MG/0.4 ML SYR SC SCH (08:50)
--- NOTE | 2017-11-27 11:10 | GDS ---
[f rep st] DISCHARGE SUMMARY CHIEF COMPLAINT: M1 hold, methamphetamine intoxication. ALL DIAGNOSES: 1. Severe anion gap metabolic acidosis. 2. Acute hypernatremia. 3. Mild rhabdomyolysis. 4. Polycythemia. 5. Severe dehydration. 6. Leukocytosis. 7. Methamphetamine intoxication. 8. Schizophrenia with acute noemi and psychosis. HOSPITAL COURSE: A 26-year-old man who was admitted to the ICU after being brought in by his mother complaining of increased paranoia and anxiety. He had been doing methamphetamines and was quite agit ated initially. His labs were markedly abnormal. He was treated with supportive care including Ativ an in the emergency department, IV fluids. His lab abnormalities markedly improved and his basic met abolic panel was normal on the day of discharge. Sodium was 141, creatinine 0.9. He was initially p olycythemic due to marked dehydration, hemoglobin improved to 15 with IV fluids. On the day of disch patricia, he is conversant, ambulating. He plans to leave the hospital, go home with his mother. He act ually has a job that he will go to [employer]. I think he is safe for all this at this point. He has b een seen by [facility], who also cleared him as he had been placed on an M1 hold initiall y. BILLING: I spent less than 30 minutes on the day of discharge coordinating care. /[id number]/MODL
--- NOTE | 2017-11-27 12:41 | ASMTCMCOM ---
CM Note CM Note Notes: Patient has been medically cleared for discharge to home. Per [facility] he is connected with [facility] outside the hospital He states he has no needs and that he will call a ride. He tells me he is to work this evening. CM available should other needs arise. Date Signed: 11/27/2017 12:41 PM Electronically Signed By:Keely León RN
== END 2017-11-27 12:45 | disposition home or self-care (01) | DRG 897 ==
LOC: EEVIPCON 22:51 → F2N 23:57
PROVIDERS: ADMIT Family Medicine; ATTEND Family Medicine
DX: F15.121 Other stimulant abuse with intoxication delirium (principal); E87.2 Acidosis; E87.0 Hyperosmolality and hypernatremia; M62.82 Rhabdomyolysis; F20.0 Paranoid schizophrenia; E86.0 Dehydration; D75.1 Secondary polycythemia; Z72.0 Tobacco use
CPT/HCPCS: 80305; 96374; G0480; J2060; J2704

== ENCOUNTER 2017-12-01 13:36 | Emergency (ER) | payer MEDICAID ==
[2017-12-01] MEDS ORDERED: LORazepam 2 MG/ML INJ IVP ONE (14:10)
[2017-12-01] MEDS ORDERED: NS 1,000 ML IV ONE (14:10)
--- NOTE | 2017-12-01 14:13 | EDPHY ---
H & P Stated Complaint: anxiety - Personal History Current Tetanus/Diphtheria Vaccine: Unsure Current Tetanus Diphtheria and Acellular Pertussis (TDAP): Unsure - Medical/Surgical History Hx Asthma: No Hx Chronic Respiratory Disease: No Hx Diabetes: No Hx Cardiac Disease: No Hx Renal Disease: Yes Hx Cirrhosis: No Hx Alcoholism: No Hx HIV/AIDS: No Hx Splenectomy or Spleen Trauma: No Other PMH: hx high "CK" levels, drug abuse, METH USE. surgery L hand 04/23. elevated creatinine 04/23. [facility] PT - Social History Smoking Status: Current every day smoker Time Seen by Provider: 12/01/17 13:59 HPI/ROS: CHIEF COMPLAINT: ""I'm really anxious and fatigued" HISTORY OF PRESENT ILLNESS: 26-year-old male history of schizophrenia, history of recent hospitalizations secondary to anion metabolic acidosis, rhabdomyolysis , hypernatremia, went to his therapist today and he requested he bring her to the ER because he has not been feeling well. When asked to elaborate this he describes that he sleeps for over 24 hr and then scribe's he is still feeling sleepy, has also feeling restless and anxious. He last used methamphetamine 2 days ago via smoking shortly after being discharged from the hospital. He denies: Chest pain, back pain, abdominal pain, headache, suicidal ideation, homicidal ideation, seizure, hallucination. REVIEW OF SYSTEMS: A ten point review of systems was performed and is negative with the exception of the items mentioned in the HPI PAST MEDICAL & SURGICAL HISTORY: Schizophrenia. SOCIAL HISTORY:Positive for methamphetamine and tobacco abuse. PHYSICAL EXAM (Prior to examination, patient consented to physical exam, hands were washed and my usual and customary physical exam procedures followed) 1) GENERAL: Well-developed, well-nourished, alert and oriented. Appears anxious 2) HEAD: Normocephalic, atraumatic 3) HEENT: Pupils equal, round, reactive to light bilaterally. Sclera anicteric. Nasopharynx, oropharynx, clear, no lesions. Dry mucous membranes Ears bilaterally with normal tympanic membranes. 4) NECK: Full range of motion, no meningeal signs. 5) LUNGS: Clear auscultation bilaterally, no wheezes, no rhonchi, no retractions. 6) HEART: Regular rate and rhythm, no murmur, no heave, no gallop. 7) ABDOMEN: No guarding, no rebound, no focal tenderness, negative McBurney's, negative Medel's, negative Rovsing's, negative peritoneal sign, 8) MUSCULOSKELETAL: Moving all extremities, no focal areas of tenderness, no obvious trauma. No peripheral edema or discoloration. 9) BACK: No CVA tenderness, no midline vertebral tenderness, no fluctuance, no step-off, no obvious trauma, no visual or palpable abnormality. 10) SKIN: No rash, no petechiae. 11) Psychiatric: Patient is oriented X 3, he is anxious DIFFERENTIAL DIAGNOSIS: In no particular include but limited to acute psychosis , suicidal ideation, noemi, polysubstance abuse (Michaela,Mala Hickman) Constitutional: Initial Vital Signs Temperature (C) 36.5 C 12/01/17 13:46 Heart Rate 82 12/01/17 13:46 Respiratory Rate 24 H 12/01/17 13:46 Blood Pressure 142/90 H 12/01/17 13:46 O2 Sat (%) 98 12/01/17 13:46 O2 Delivery Mode Room Air Allergies/Adverse Reactions: No Known Allergies Allergy (Verified 12/01/17 13:45) Home Medications: Medication Instructions Recorded Perphenazine 12 mg PO HS 11/26/17 Medical Decision Making ED Course/Re-evaluation: 2:12 p.m.: I have reviewed the patient's old medical records. At this time he appears anxious, he is hyperventilating. Will obtain laboratory studies including creatine kinase, IV hydration and re-evaluate. At this time I do not think he meets criteria for an M1 hold. Care of patient under supervision of secondary supervising physician Dr Adams . 3:15 p.m.: Re-evaluation, sleeping after 1 mg of IV Ativan and IV hydration. Reviewed his laboratory studies. He is noted to be hemoconcentrated with no acidosis, CK elevated at 760 but negative for rhabdomyolysis. 3:50 p.m.: Re-evaluation. He is sleeping, easily woken. Compared to his initial examination he appears significantly more calm. His respiratory rate has normalized. Discussed potential complications of methamphetamine use and recommend cessation of this. He denies suicidal or homicidal ideation. I do not think he is currently manic or psychotic. I do not think he is gravely disabled. I do not think he meets criteria for an M1 hold. He request whether he could sleep in the ER for few more hours. I have declined this request. Have offered mental health evaluation however he prefers to have this performed on outpatient basis and go to the [facility] walk-in clinic on [facility]. Recommend that if he develops thoughts of hurting himself or others or any other symptoms to return to the ER for re-evaluation. Recommend methamphetamine avoidance in the future. (Mala Jennings) - Data Points Laboratory Results: Laboratory Results 12/01/17 14:14 12/01/17 14:14 12/01/17 12/01/17 12/01/17 14:30 14:14 14:14 WBC 7.36 10^3/uL 10^3/uL (3.80-9.50) RBC 5.94 10^6/uL 10^6/uL (4.40-6.38) Hgb 18.6 g/dL H g/dL (13.7-17.5) Hct 52.6 % H % (40.0-51.0) MCV 88.6 fL fL (81.5-99.8) MCH 31.3 pg pg (27.9-34.1) MCHC 35.4 g/dL g/dL (32.4-36.7) RDW 12.7 % % (11.5-15.2) Plt Count 206 10^3/uL 10^3/uL (150-400) MPV 9.0 fL fL (8.7-11.7) Neut % (Auto) 62.2 % % (39.3-74.2) Lymph % (Auto) 29.1 % % (15.0-45.0) Grant % (Auto) 5.8 % % (4.5-13.0) Eos % (Auto) 1.8 % % (0.6-7.6) Baso % (Auto) 1.0 % % (0.3-1.7) Nucleat RBC Rel Count 0.0 % % (0.0-0.2) Absolute Neuts (auto) 4.58 10^3/uL 10^3/uL (1.70-6.50) Absolute Lymphs (auto) 2.14 10^3/uL 10^3/uL (1.00-3.00) Absolute Monos (auto) 0.43 10^3/uL 10^3/uL (0.30-0.80) Absolute Eos (auto) 0.13 10^3/uL 10^3/uL (0.03-0.40) Absolute Basos (auto) 0.07 10^3/uL 10^3/uL (0.02-0.10) Absolute Nucleated RBC 0.00 10^3/uL 10^3/uL (0-0.01) Immature Gran % 0.1 % % (0.0-1.1) Immature Gran # 0.01 10^3/uL 10^3/uL (0.00-0.10) Sodium 145 mEq/L mEq/L (135-145) Potassium 4.7 mEq/L mEq/L (3.5-5.2) Chloride 106 mEq/L mEq/L (97-110) Carbon Dioxide 25 mEq/l mEq/l (22-31) Anion Gap 14 mEq/L mEq/L (8-16) BUN 14 mg/dL mg/dL (7-23) Creatinine 0.8 mg/dL mg/dL (0.7-1.3) Estimated GFR > 60 Glucose 75 mg/dL mg/dL (70-100) Calcium 9.4 mg/dL mg/dL (8.5-10.4) Creatine Kinase 760 IU/L H IU/L (0-224) CK-MB (CK-2) Fraction 2.28 ng/mL ng/mL (0.00-3.19) CK-MB (CK-2) % 0.3 % % (0.0-4.0) Creatine Kinase Interp NEGATIVE (NEGATIVE) TSH 2.100 uIU/mL uIU/mL (0.465-4.680) Urine Opiates Screen Urine Barbiturates Ur Phencyclidine Scrn Ur Amphetamine Screen U Benzodiazepines Scrn Urine Cocaine Screen U Marijuana (THC) Screen Ethyl Alcohol < 10 mg/dL mg/dL (0-10) 12/01/17 14:00 WBC RBC Hgb Hct MCV MCH MCHC RDW Plt Count MPV Neut % (Auto) Lymph % (Auto) Grant % (Auto) Eos % (Auto) Baso % (Auto) Nucleat RBC Rel Count Absolute Neuts (auto) Absolute Lymphs (auto) Absolute Monos (auto) Absolute Eos (auto) Absolute Basos (auto) Absolute Nucleated RBC Immature Gran % Immature Gran # Sodium Potassium Chloride Carbon Dioxide Anion Gap BUN Creatinine Estimated GFR Glucose Calcium Creatine Kinase CK-MB (CK-2) Fraction CK-MB (CK-2) % Creatine Kinase Interp TSH Urine Opiates Screen NEGATIVE (NEGATIVE) Urine Barbiturates NEGATIVE (NEGATIVE) Ur Phencyclidine Scrn NEGATIVE (NEGATIVE) Ur Amphetamine Screen NON-NEGATIVE H (NEGATIVE) U Benzodiazepines Scrn NEGATIVE (NEGATIVE) Urine Cocaine Screen NEGATIVE (NEGATIVE) U Marijuana (THC) Screen NON-NEGATIVE H (NEGATIVE) Ethyl Alcohol Medications Given: Discontinued Medications Sodium Chloride (Ns) 1,000 mls @ 0 mls/hr IV ONCE ONE PRN Reason: Wide Open Stop: 12/01/17 14:11 Last Admin: 12/01/17 14:31 Dose: 1,000 mls Lorazepam (Ativan Injection) 1 mg IVP EDNOW ONE Stop: 12/01/17 14:11 Last Admin: 12/01/17 14:31 Dose: 1 mg Departure - Departure Disposition: Home, Routine, Self-Care Clinical Impression: Methamphetamine abuse Condition: Good Instructions: Methamphetamine Abuse (ED) Additional Instructions: Do not use methamphetamine or other street drugs in the future. Referrals: [facility]. [Clinic] - 12/01/17 4:30 pm
[2017-12-01 14:24] LABS: PLATELET COUNT 206 10^3/uL (150-400)
[2017-12-01 15:20] LABS: CREATINE KINASE 760 IU/L (0-224)
[2017-12-01 16:36] VITALS: BP 134/73
== END 2017-12-01 16:36 | disposition home or self-care (01) ==
DX: F15.10 Other stimulant abuse, uncomplicated (principal); F17.200 Nicotine dependence, unspecified, uncomplicated
CPT/HCPCS: 80305; 96374; G0480; J2060

== ENCOUNTER 2018-09-14 14:35 | Emergency (ER) | payer MEDICAID ==
[2018-09-14] MEDS ORDERED: NS 1,000 ML IV ONE (15:11)
--- NOTE | 2018-09-14 15:17 | EDPHY ---
H & P Stated Complaint: fever chills thursday now with bilat low back/?kidney pain Time Seen by Provider: 09/14/18 14:57 HPI/ROS: CHIEF COMPLAINT: Bilateral low back pain HISTORY OF PRESENT ILLNESS: The patient is a 27-year-old man with a history of paranoid schizophrenia and methamphetamine abuse with previous admissions for rhabdomyolysis in the setting of methamphetamine abuse. He states that on Thursday he had chills and low back pain and vomited once. No headache. No sore throat. Mild runny nose. No fevers. He states that the chills and vomiting resolved but then on Thursday and Thursday he has continued to have mild low back pain. He is worried about his kidneys because of his history of rhabdomyolysis. No dysuria. No discharge. No sexual activity. No trauma. He states that occasionally the pain seems to radiate to his front bilaterally. No testicular pain. No swelling. No trauma. Severity: Moderate Modifying factors: None REVIEW OF SYSTEMS: Constitutional: See HPI EENTM: denies: blurred vision, double vision, nose congestion Respiratory: denies: cough, shortness of breath Cardiac: denies: chest pain, irregular heart rate, lightheadedness, palpitations Gastrointestinal/Abdominal: denies: abdominal pain, diarrhea, nausea, vomiting, blood streaked stools Genitourinary: denies: dysuria, frequency, hematuria, pain Musculoskeletal: See HPI Skin: denies: lesions, rash, jaundice, bruising Neurological: denies: headache, numbness, paresthesia, tingling, dizziness, weakness Hematologic/Lymphatic: denies: blood clots, easy bleeding, easy bruising Immunologic/allergic: denies: HIV/AIDS, transplant 10 systems reviewed and negative except as noted EXAM: GENERAL: Well-appearing, well-nourished and in no acute distress. HEAD: Atraumatic, normocephalic. EYES: Pupils equal round and reactive to light, extraocular movements intact, sclera anicteric, conjunctiva are normal. ENT: TMs normal, nares patent, oropharynx clear without exudates. Moist mucous membranes. NECK: Normal range of motion, supple without lymphadenopathy or JVD. LUNGS: Breath sounds clear to auscultation bilaterally and equal. No wheezes rales or rhonchi. HEART: Regular rate and rhythm without murmurs, rubs or gallops. ABDOMEN: Soft, nontender, normoactive bowel sounds. No guarding, no rebound. No masses appreciated. BACK: Mild bilateral CVA pain, no tenderness, no spinal tenderness, step-offs or deformities EXTREMITIES: Normal range of motion, no pitting or edema. No clubbing or cyanosis. NEUROLOGICAL: Cranial nerves II through XII grossly intact. Normal speech, normal gait. 5/5 strength, normal movement in all extremities, normal sensation , normal reflexes PSYCH: Normal mood, normal affect. SKIN: Warm, dry, normal turgor, no visible rashes or lesions. Source: Patient Exam Limitations: No limitations - Personal History Current Tetanus Diphtheria and Acellular Pertussis (TDAP): Yes - Medical/Surgical History Hx Asthma: No Hx Chronic Respiratory Disease: No Hx Diabetes: No Hx Cardiac Disease: No Hx Renal Disease: No Hx Cirrhosis: No Hx Alcoholism: No Hx HIV/AIDS: No Hx Splenectomy or Spleen Trauma: No Other PMH: anxiety/ paranoid - Family History Significant Family History: No pertinent family hx - Social History Smoking Status: Heavy smoker Alcohol Use: Sober Drug Use: Marijuana, Other Constitutional: Initial Vital Signs Temperature (C) 36.8 C 09/14/18 14:46 Heart Rate 88 09/14/18 14:46 Respiratory Rate 18 09/14/18 14:46 Blood Pressure 133/74 H 09/14/18 14:46 O2 Sat (%) 95 09/14/18 14:46 O2 Delivery Mode Room Air Allergies/Adverse Reactions: No Known Allergies Allergy (Verified 09/14/18 14:45) Home Medications: Medication Instructions Recorded NK [No Known Home Meds] 09/14/18 Medical Decision Making ED Course/Re-evaluation: 5:40 p.m. We discussed the patient's lab work and urinalysis which are all very reassuring. He has no abdominal tenderness. I suspect that this is a muscular strain. Patient agrees. He declines further imaging or testing. I encouraged him to rest, use ice and Tylenol. We discussed indications for returning. Differential Diagnosis: Partial list of the Differential diagnosis considered include but were not limited to; muscle strain, rhabdo, urinary tract infection, kidney stone and although unlikely based on the history and physical exam, I also considered the radiculopathy, appendicitis. I discussed these differential diagnoses and the plan with the patient as well as the usual and expected course. The patient understands that the diagnosis is provisional and that in medicine we are not always correct and that further workup is often warranted. Usual and customary warnings were given. All of the patient's questions were answered. The patient was instructed to return to the emergency department should the symptoms at all worsen or return, otherwise to followup with the physician as we discussed. - Data Points Laboratory Results: Laboratory Results 09/14/18 15:34 09/14/18 15:34 09/14/18 09/14/18 09/14/18 17:05 15:34 15:34 WBC 9.01 10^3/uL 10^3/uL (3.80-9.50) RBC 5.39 10^6/uL 10^6/uL (4.40-6.38) Hgb 17.2 g/dL g/dL (13.7-17.5) Hct 48.4 % % (40.0-51.0) MCV 89.8 fL fL (81.5-99.8) MCH 31.9 pg pg (27.9-34.1) MCHC 35.5 g/dL g/dL (32.4-36.7) RDW 12.3 % % (11.5-15.2) Plt Count 192 10^3/uL 10^3/uL (150-400) MPV 9.1 fL fL (8.7-11.7) Neut % (Auto) 66.4 % % (39.3-74.2) Lymph % (Auto) 24.3 % % (15.0-45.0) [place] % (Auto) 6.8 % % (4.5-13.0) Eos % (Auto) 1.6 % % (0.6-7.6) Baso % (Auto) 0.7 % % (0.3-1.7) Nucleat RBC Rel Count 0.0 % % (0.0-0.2) Absolute Neuts (auto) 5.99 10^3/uL 10^3/uL (1.70-6.50) Absolute Lymphs (auto) 2.19 10^3/uL 10^3/uL (1.00-3.00) Absolute Monos (auto) 0.61 10^3/uL 10^3/uL (0.30-0.80) Absolute Eos (auto) 0.14 10^3/uL 10^3/uL (0.03-0.40) Absolute Basos (auto) 0.06 10^3/uL 10^3/uL (0.02-0.10) Absolute Nucleated RBC 0.00 10^3/uL 10^3/uL (0-0.01) Immature Gran % 0.2 % % (0.0-1.1) Immature Gran # 0.02 10^3/uL 10^3/uL (0.00-0.10) Sodium 141 mEq/L mEq/L (135-145) Potassium 4.6 mEq/L mEq/L (3.5-5.2) Chloride 111 mEq/L H mEq/L (97-110) Carbon Dioxide 23 mEq/l mEq/l (22-31) Anion Gap 7 mEq/L mEq/L (6-14) BUN 16 mg/dL mg/dL (7-23) Creatinine 1.0 mg/dL mg/dL (0.7-1.3) Estimated GFR > 60 Glucose 87 mg/dL mg/dL (70-100) Calcium 9.0 mg/dL mg/dL (8.5-10.4) Total Bilirubin 0.8 mg/dL mg/dL (0.1-1.4) Conjugated Bilirubin 0.5 mg/dL mg/dL (0.0-0.5) Unconjugated Bilirubin 0.3 mg/dL mg/dL (0.0-1.1) AST 23 IU/L IU/L (17-59) ALT 21 IU/L IU/L (21-72) Alkaline Phosphatase 73 IU/L IU/L (38-126) Creatine Kinase 87 IU/L IU/L (0-224) Total Protein 6.8 g/dL g/dL (6.3-8.2) Albumin 4.3 g/dL g/dL (3.5-5.0) Lipase 62 IU/L IU/L (23-300) Urine Color YELLOW Urine Appearance MODERATELY TURBID Urine pH 8.0 H (5.0-7.5) Ur Specific [place] 1.025 (1.002-1.030) Urine Protein NEGATIVE (NEGATIVE) Urine Ketones NEGATIVE (NEGATIVE) Urine Blood NEGATIVE (NEGATIVE) Urine Nitrate NEGATIVE (NEGATIVE) Urine Bilirubin NEGATIVE (NEGATIVE) Urine Urobilinogen 2.0 EU H EU (0.2-1.0) Ur Leukocyte Esterase NEGATIVE (NEGATIVE) Urine RBC 1-3 /hpf /hpf (0-3) Urine WBC 1-3 /hpf /hpf (0-3) Ur Epithelial Cells TRACE /lpf /lpf (NONE-1+) Amorphous Sediment PRESENT /hpf /hpf (NONE-1+) Urine Mucus TRACE /lpf /lpf (NONE-1+) Urine Glucose NEGATIVE (NEGATIVE) Medications Given: Discontinued Medications Acetaminophen (Tylenol) 1,000 mg PO EDNOW ONE Stop: 09/14/18 17:42 Last Admin: 09/14/18 17:45 Dose: 1,000 mg Sodium Chloride (Ns) 1,000 mls @ 0 mls/hr IV EDNOW ONE; Wide Open PRN Reason: Protocol Stop: 09/14/18 15:12 Last Admin: 09/14/18 15:38 Dose: 1,000 mls Departure - Departure Disposition: Home, Routine, Self-Care Clinical Impression: Low back pain Qualifiers: Chronicity: unspecified Back pain laterality: bilateral Sciatica presence: without sciatica Qualified Code(s): M54.5 - Low back pain Condition: Fair Instructions: Low Back Strain (ED) Referrals: NONE *PRIMARY CARE P,. [Primary Care Provider] - As per Instructions Komal Akhtar MD [Medical Doctor] - As per Instructions
[2018-09-14 15:46] LABS: PLATELET COUNT 192 10^3/uL (150-400)
[2018-09-14 15:59] LABS: CREATINE KINASE 87 IU/L (0-224)
[2018-09-14] MEDS ORDERED: ACETAMINOPHEN 500 MG TAB PO ONE (17:41)
[2018-09-14 18:05] VITALS: BP 131/84
== END 2018-09-14 18:03 | disposition home or self-care (01) ==
DX: M54.5 Low back pain (principal); E86.9 Volume depletion, unspecified

== ENCOUNTER 2018-11-07 22:42 | Emergency (ER) | payer MEDICAID | END 2018-11-08 05:05 ==

== ENCOUNTER 2019-01-03 15:16 | Emergency (ER) | payer MEDICAID ==
[2019-01-03] MEDS ORDERED: LORazepam 1 MG TAB PO ONE ×2 (15:37→15:38)
--- NOTE | 2019-01-03 15:39 | EDPHY ---
H & P Stated Complaint: anxiety and paranoia - Personal History Current Tetanus/Diphtheria Vaccine: Yes Current Tetanus Diphtheria and Acellular Pertussis (TDAP): Yes - Medical/Surgical History Hx Asthma: No Hx Chronic Respiratory Disease: No Hx Diabetes: No Hx Cardiac Disease: No Hx Renal Disease: No Hx Cirrhosis: No Hx Alcoholism: No Hx HIV/AIDS: No Hx Splenectomy or Spleen Trauma: No Other PMH: anxiety/ paranoid, meth drug user - Social History Smoking Status: Heavy smoker Time Seen by Provider: 01/03/19 15:25 HPI/ROS: CHIEF COMPLAINT: Acute anxiety after being released from [facility] HISTORY OF PRESENT ILLNESS: 28-year-old male released from [facility], came directly to the emergency department complaining of acute anxiety. Been sober from methamphetamine for several months. Denies suicidal or homicidal ideation. Denies complaints of pain or discomfort. Denies hallucination. PRIMARY CARE PROVIDER: REVIEW OF SYSTEMS: 10 systems reviewed and negative with the exception of the elements mentioned in the history of present illness PAST MEDICAL & SURGICAL HISTORY: Schizophrenia. SOCIAL HISTORY: Last used methamphetamine several months ago. Released from [facility] few hours ago. PHYSICAL EXAM (Prior to examination, patient consented to physical exam, hands were washed and my usual and customary physical exam procedures followed) 1) GENERAL: Well-developed, well-nourished, alert and oriented. Appears anxious. Pacing.. 2) HEAD: Normocephalic, atraumatic 3) HEENT: Pupils equal, round, reactive to light bilaterally. Sclera anicteric. 4) NECK: Full range of motion, no meningeal signs. 5) LUNGS: Clear auscultation bilaterally, no wheezes, no rhonchi, no retractions. 6) HEART: Regular rate and rhythm, no murmur, no heave, no gallop. 7) ABDOMEN: No guarding, no rebound, no focal tenderness, 8) MUSCULOSKELETAL: Moving all extremities, no focal areas of tenderness, no obvious trauma. No peripheral edema or discoloration. 9) BACK: No CVA tenderness, no midline vertebral tenderness, no fluctuance, no step-off, no obvious trauma, no visual or palpable abnormality. 10) SKIN: No rash, no petechiae. 11) Psychiatric: Patient is oriented X 3, there is no agitation. DIFFERENTIAL DIAGNOSIS: In no particular order including but not limited to polysubstance abuse, acute anxiety, psychosis (Mala Jennings) Constitutional: Initial Vital Signs Temperature (C) 36.6 C 01/03/19 15:18 Heart Rate 129 H 01/03/19 15:18 Respiratory Rate 16 01/03/19 15:18 Blood Pressure 144/91 H 01/03/19 15:18 O2 Sat (%) 97 01/03/19 15:18 O2 Delivery Mode Room Air Allergies/Adverse Reactions: No Known Allergies Allergy (Verified 09/14/18 14:45) Home Medications: Medication Instructions Recorded Zyprexa 01/03/19 Medical Decision Making ED Course/Re-evaluation: 3:39 p.m.: Patient is complaining acute anxiety. At this time he denies suicidal or homicidal ideation. I Do not think he meets criteria for an M1 hold at this time. I have offered Ativan intranasally or intramuscularly however he declines these preferring a single oral dose only. Will administer this and observe patient. Care of patient under supervision of secondary supervising physician Dr Nielsen . 4:28 p.m.: Re-evaluation after oral Ativan. Feeling improvement. He appears calm, he is Sitting comfortably. Heart rate in the 90s. Denies suicidal or homicidal ideation. Plan will be discharge. [facility] with [facility]. (Mala Jennings) Other Provider: The patient was evaluated and managed by the Physician [employer]. My co- signature indicates that I have reviewed this chart and I agree with the findings and plan of care as documented. I am the secondary supervising physician. (Mariya Nielsen) - Data Points Medications Given: Discontinued Medications Lorazepam (Ativan) 1 mg PO EDNOW ONE Stop: 01/03/19 15:38 Last Admin: 01/03/19 15:40 Dose: 1 mg Lorazepam (Ativan) 1 mg PO EDNOW ONE Stop: 01/03/19 15:39 Last Admin: 01/03/19 15:40 Dose: 1 mg Departure - Departure Disposition: Home, Routine, Self-Care Clinical Impression: Anxiety Condition: Good Instructions: Anxiety (ED) Additional Instructions: Return to the ER immediately if you experience thoughts of hurting yourself, thoughts of hurting other people, thoughts of killing other people or killing yourself. Referrals: [facility],. [Clinic] - 1-2 days without fail
[2019-01-03 16:36] VITALS: BP 138/97
== END 2019-01-03 16:43 | disposition home or self-care (01) ==
DX: F41.9 Anxiety disorder, unspecified (principal); F20.0 Paranoid schizophrenia